=== PATIENT | female | born 1980 | race Caucasian/White ===

== ENCOUNTER 2017-10-13 11:00 | Emergency (ER) | payer MEDICAID ==
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
[2017-10-13] MEDS ORDERED: IBUP800T37 PO (11:12)
[2017-10-13] MEDS ORDERED: CLON0.5T66 PO (11:12)
[2017-10-13] MEDS ORDERED: ACETAMINOPHEN 500 MG TAB PO ONE (11:20)
[2017-10-13] MEDS ORDERED: METAXALONE 800 MG TAB PO SCH (11:20)
--- NOTE | 2017-10-13 12:09 | RADIOLOGY IMAGING REPORT ---
FACILITY: [facility] PATIENT NAME: Carolina Adamson : 1980 MR: [id number] V: [id number] EXAM DATE: ORDERING PHYSICIAN: JOSEFINA LEIGH TECHNOLOGIST: Location: [facility] Patient: Carolina Adamson : 1980 Visit/Account:[id number] Date of Sevice: 10/13/2017 Technique: KNEE 4 VIEW RIGHT HISTORY: old injury with "hardware that is bending causing pain" Comparison studies: Right knee radiographs December 31, 2016 FINDINGS: There is no acute fracture. Extensive surgical hardware overlies the tibial plateau as wel l as proximal femoral diaphysis. No interval increasing lucency. The alignment of the right knee is maintained. Previous hardware placement overlies the distal right femoral diaphysis. There are deg enerative changes within the knee. IMPRESSION: 1. Postoperative changes within the right tibia without evidence of acute hardware complication. 2. Degenerative changes of the right knee. Report Dictated By: Williams Luevano DO at 10/13/2017 12:04 PM Report E-Signed By: Williams Luevano DO at 10/13/2017 12:07 PM WSN:[email or web address]
[2017-10-13] MEDS ORDERED: META800T18 PO (12:28)
[2017-10-13 12:33] VITALS: BP 105/75
== END 2017-10-13 12:34 | disposition home or self-care (01) ==
LOC: ER 11:09
DX: M25.561 Pain in right knee (principal)
CPT/HCPCS: 73564; 99283; L1830

== ENCOUNTER 2018-05-07 15:34 | Emergency (ER) | payer MEDICAID ==
[~2018-05-07 15:34] MED LIST: CLON0.5T66 PO; IBUP800T37 PO; META800T18 PO
[2018-05-07] MEDS ORDERED: ESCI20TA38 PO (15:45)
[2018-05-07] MEDS ORDERED: HYDR50SY (15:45)
[2018-05-07] MEDS ORDERED: HYDR10TA3 PO (15:45)
[2018-05-07] MEDS ORDERED: NAPR220C12 PO (15:45)
[2018-05-07] MEDS ORDERED: ABILIF5PT PO (15:45)
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
[2018-05-07] MEDS ORDERED: ORPHENADRINE 60MG/2ML INJ IM ONE (16:10)
[2018-05-07 16:30] VITALS: BP 103/83
--- NOTE | 2018-05-07 16:44 | RADIOLOGY IMAGING REPORT ---
FACILITY: [facility] PATIENT NAME: Carolina Adamson : 1980 MR: [id number] V: [id number] EXAM DATE: ORDERING PHYSICIAN: JOSEFINA LEIGH TECHNOLOGIST: [place] [facility] [place] : 1980 Visit/Account:[id number] Date of Sevice: 05/07/2018 Technique: KNEE 4 VIEW RIGHT HISTORY: fall, pain Comparison studies: Right knee radiographs October 13, 2017 FINDINGS: There is no acute fracture. Medial, posterior and lateral hardware again is noted overlyin g tibial plateau. The right knee is maintained. Redemonstrated are degenerative findings including joint space narrowi ng, sclerosis as well as an intra-articular loose body. Small knee joint effusion is present. IMPRESSION: 1. No acute osseous process. 2. Degenerative and postoperative findings as above. Report Dictated By: Williams Luevano DO at 05/07/2018 4:36 PM Report E-Signed By: Williams Luevano DO at 05/07/2018 4:40 PM WSN:[email or web address]
== END 2018-05-07 17:05 | disposition home or self-care (01) ==
LOC: ER 15:41
DX: M25.561 Pain in right knee (principal)
CPT/HCPCS: 73564; 96372; 99283; J2360

== ENCOUNTER 2018-06-19 15:15 | Emergency (ER) | payer MEDICAID ==
[~2018-06-19 15:15] MED LIST changes: +ABILIF5PT PO; +ESCI20TA38 PO; +HYDR10TA3 PO; +HYDR50SY; +NAPR220C12 PO
--- NOTE | 2018-06-19 15:29 | ER Report ---
History and Physical Time Seen By MD: 15:24 HPI/ROS CHIEF COMPLAINT: Suicidal ideation HISTORY OF PRESENT ILLNESS: This is a 37-year-old female who presents to the emergency department for suicidal ideations. Patient states that she has been un deep increased stress her last week, his increased over the last several days, has been fighting with her living girlfriend, has had increased thoughts of suicide but no definitive plan. She has a history of cutting and depression. Patient did cut her left forearm couple of days ago, no signs of infection. Patient is making poor eye contact, not very forthcoming with information, she states that she is unsure if she wants to kill herself but she does not want to be around, she is unsure exactly what she wants or needs. She did try following up with [facility] she has been seeing [facility] for the last couple of months. She is tearful. She slipped and fell twice, injuring her left shoulder around the scapula. No obvious deformities. She also had 2 shots of liquor prior to coming in this afternoon, she also admits to using cocaine approximately 2 days ago. REVIEW OF SYSTEMS: Constitutional: No fever, no chills. Eyes: No discharge. ENT: No sore throat. Cardiovascular: No chest pain, no palpitations. Respiratory: No cough, no shortness of breath. Gastrointestinal: No abdominal pain, no vomiting. Genitourinary: No hematuria. Musculoskeletal: As above. Skin: No rashes. Neurological: No headache. Psychological: As above. Allergies: Coded Allergies: Penicillins (Verified Allergy, Unknown, 05/07/18) Home Meds Reported Medications Hydroxyzine HCl (Hydroxyzine HCl) 50 Mg/25 Ml Syrup 05/07/18 Hydroxyzine Hcl (HYDROXYZINE HCL) 10 Mg Tablet, 10 MG PO PRN 05/07/18 Escitalopram Oxalate (LEXAPRO) 20 Mg Tablet, 20 MG PO QDAY, TAB 05/07/18 Aripiprazole (ABILIFY) 5 Mg Tablet, 5 MG PO QDAY, #10 TAB 05/07/18 Naproxen Sodium (ALEVE) 220 Mg Capsule, 220 MG PO BID, CAPSULE 05/07/18 Past Medical/Surgical History The patient has a past medical and surgical history of tibial plateau fracture, occasionally uses alcohol, depression, anxiety, history of cutting, right knee surgery, sinus surgery. Reviewed Nurses Notes: Yes Hx Substance Use Disorder: No Hx Alcohol Use: Yes (OCC) Constitutional Vital Sign - Last 24 Hours 06/19/18 06/19/18 06/19/18 06/19/18 15:23 15:23 15:30 15:45 Temp 98.7 Pulse 112 100 Resp 18 36 B/P (MAP) 142/104 142/104 (117) 119/81 (94) Pulse Ox 96 93 O2 Delivery Room Air 06/19/18 06/19/18 06/19/18 06/19/18 16:15 16:45 17:15 17:45 Pulse 99 82 86 91 Resp 17 13 12 21 Pulse Ox 97 95 97 93 Physical Exam General Appearance: The patient is alert, has no immediate need for airway protection and no signs of toxicity. Eyes: Pupils equal and round no pallor or injection. ENT, Mouth: Mucous membranes are moist. Respiratory: There are no retractions, lungs are clear to auscultation. Cardiovascular: Regular rate and rhythm. Gastrointestinal: Abdomen is soft and non tender, no masses, bowel sounds normal. Neurological: Alert and oriented to 4. Moving all extremities. Following all commands. No focal neuro deficits. Skin: Warm and dry, no rashes. Musculoskeletal: Neck is supple non tender. Extremities are nontender, nonswollen and have full range of motion. Psychological: Patient making poor eye contact, not very forthcoming with inform ation. Arms are crossed. She is tearful.. Flat affect not willing to converse at this time. Patient getting very limited information however she does state that she has had suicidal ideations. DIFFERENTIAL DIAGNOSIS: After history and physical exam differential diagnosis was considered for suicidal ideation. Medical Decision Making Data Points Result Diagram: 06/19/18 1607 06/19/18 1607 Laboratory Hematology Test 06/19/18 16:04 06/19/18 16:07 Urine Color Straw Urine Clarity Clear Urine pH 5.0 pH (4.8-9.5) Urine Specific [place] 1.002 Urine Protein Negative mg/dL (NEGATIVE) Urine Glucose (UA) Negative mg/dL (NEGATIVE) Urine Ketones Negative mg/dL (NEGATIVE) Urine Blood Negative (NEGATIVE) Urine Nitrite Negative (NEGATIVE) Urine Bilirubin Negative (NEGATIVE) Urine Urobilinogen Negative mg/dL (0.2-1.9) Urine Leukocyte Esterase Negative (NEGATIVE) Urine RBC None /HPF (0-2/HPF) Urine WBC 2 /HPF (0-5/HPF) Urine Squamous Epithelial Cells Few /LPF (</=FEW) Urine Bacteria Moderate /HPF (NONE-FEW) Urine Mucus None /HPF (NONE-FEW) Urine HCG, Qualitative Negative (NEGATIVE) Urine Opiates Screen Negative Urine Barbiturates Screen Negative Ur Tricyclic Antidepressants Screen Negative Urine Phencyclidine Screen Negative Urine Amphetamines Screen Positive Urine Benzodiazepines Screen Negative Urine Cocaine Screen Negative Urine Cannabinoids Screen Negative Red Blood Count 5.12 M/uL (4.17-5.56) Mean Corpuscular Volume 92.8 fL (80.0-96.0) Mean Corpuscular Hemoglobin 30.8 pg (26.0-33.0) Mean Corpuscular Hemoglobin Concent 33.2 g/dL (32.0-36.0) Red Cell Distribution Width 13.0 % (11.5-14.5) Mean Platelet Volume 7.9 fL (7.2-11.1) Neutrophils (%) (Auto) 73.1 % (39.4-72.5) Lymphocytes (%) (Auto) 19.4 % (17.6-49.6) Monocytes (%) (Auto) 5.8 % (4.1-12.4) Eosinophils (%) (Auto) 1.2 % (0.4-6.7) Basophils (%) (Auto) 0.5 % (0.3-1.4) Nucleated RBC Relative Count (auto) 0.0 /100WBC Neutrophils # (Auto) 6.4 K/uL (2.0-7.4) Lymphocytes # (Auto) 1.7 K/uL (1.3-3.6) Monocytes # (Auto) 0.5 K/uL (0.3-1.0) Eosinophils # (Auto) 0.1 K/uL (0.0-0.5) Basophils # (Auto) 0.0 K/uL (0.0-0.1) Nucleated RBC Absolute Count (auto) 0.00 K/uL Sodium Level 142 mmol/L (137-145) Potassium Level 3.6 mmol/L (3.5-5.0) Chloride Level 111 mmol/L (98-107) Carbon Dioxide Level 25 mmol/L (22-31) Blood Urea Nitrogen 7 mg/dl (7-18) Creatinine 0.70 mg/dl (0.52-1.04) Glomerular Filtration Rate Calc > 60.0 Random Glucose 70 mg/dl (75-110) Calcium Level 9.4 mg/dl (8.4-10.2) Magnesium Level 1.9 mg/dl (1.7-2.2) Total Bilirubin 0.2 mg/dl (0.2-1.3) Aspartate Amino Transf (AST/SGOT) 31 U/L (0-35) Alanine Aminotransferase (ALT/SGPT) 25 U/L (0-56) Alkaline Phosphatase 100 U/L (0-126) Total Protein 7.2 g/dl (6.3-8.2) Albumin 4.3 g/dl (3.5-5.0) Thyroid Stimulating Hormone (TSH) 0.58 uIU/ml (0.46-4.68) Salicylates Level < 10 mg/L Salicylate Last Dose Date unk Acetaminophen Level < 10 ug/ml Serum Alcohol 84 mg/dl Chemistry Test 06/19/18 16:04 06/19/18 16:07 Urine Color Straw Urine Clarity Clear Urine pH 5.0 pH (4.8-9.5) Urine Specific [place] 1.002 Urine Protein Negative mg/dL (NEGATIVE) Urine Glucose (UA) Negative mg/dL (NEGATIVE) Urine Ketones Negative mg/dL (NEGATIVE) Urine Blood Negative (NEGATIVE) Urine Nitrite Negative (NEGATIVE) Urine Bilirubin Negative (NEGATIVE) Urine Urobilinogen Negative mg/dL (0.2-1.9) Urine Leukocyte Esterase Negative (NEGATIVE) Urine RBC None /HPF (0-2/HPF) Urine WBC 2 /HPF (0-5/HPF) Urine Squamous Epithelial Cells Few /LPF (</=FEW) Urine Bacteria Moderate /HPF (NONE-FEW) Urine Mucus None /HPF (NONE-FEW) Urine HCG, Qualitative Negative (NEGATIVE) Urine Opiates Screen Negative Urine Barbiturates Screen Negative Ur Tricyclic Antidepressants Screen Negative Urine Phencyclidine Screen Negative Urine Amphetamines Screen Positive Urine Benzodiazepines Screen Negative Urine Cocaine Screen Negative Urine Cannabinoids Screen Negative White Blood Count 8.8 k/uL (4.5-11.0) Red Blood Count 5.12 M/uL (4.17-5.56) Hemoglobin 15.7 g/dL (12.0-16.0) Hematocrit 47.5 % (34.0-47.0) Mean Corpuscular Volume 92.8 fL (80.0-96.0) Mean Corpuscular Hemoglobin 30.8 pg (26.0-33.0) Mean Corpuscular Hemoglobin Concent 33.2 g/dL (32.0-36.0) Red Cell Distribution Width 13.0 % (11.5-14.5) Platelet Count 285 K/uL (150-450) Mean Platelet Volume 7.9 fL (7.2-11.1) Neutrophils (%) (Auto) 73.1 % (39.4-72.5) Lymphocytes (%) (Auto) 19.4 % (17.6-49.6) Monocytes (%) (Auto) 5.8 % (4.1-12.4) Eosinophils (%) (Auto) 1.2 % (0.4-6.7) Basophils (%) (Auto) 0.5 % (0.3-1.4) Nucleated RBC Relative Count (auto) 0.0 /100WBC Neutrophils # (Auto) 6.4 K/uL (2.0-7.4) Lymphocytes # (Auto) 1.7 K/uL (1.3-3.6) Monocytes # (Auto) 0.5 K/uL (0.3-1.0) Eosinophils # (Auto) 0.1 K/uL (0.0-0.5) Basophils # (Auto) 0.0 K/uL (0.0-0.1) Nucleated RBC Absolute Count (auto) 0.00 K/uL Glomerular Filtration Rate Calc > 60.0 Calcium Level 9.4 mg/dl (8.4-10.2) Magnesium Level 1.9 mg/dl (1.7-2.2) Total Bilirubin 0.2 mg/dl (0.2-1.3) Aspartate Amino Transf (AST/SGOT) 31 U/L (0-35) Alanine Aminotransferase (ALT/SGPT) 25 U/L (0-56) Alkaline Phosphatase 100 U/L (0-126) Total Protein 7.2 g/dl (6.3-8.2) Albumin 4.3 g/dl (3.5-5.0) Thyroid Stimulating Hormone (TSH) 0.58 uIU/ml (0.46-4.68) Salicylates Level < 10 mg/L Salicylate Last Dose Date unk Acetaminophen Level < 10 ug/ml Serum Alcohol 84 mg/dl Toxicology Test 06/19/18 16:04 06/19/18 16:07 Urine Opiates Screen Negative Urine Barbiturates Screen Negative Ur Tricyclic Antidepressants Screen Negative Urine Phencyclidine Screen Negative Urine Amphetamines Screen Positive Urine Benzodiazepines Screen Negative Urine Cocaine Screen Negative Urine Cannabinoids Screen Negative Salicylates Level < 10 mg/L Salicylate Last Dose Date unk Acetaminophen Level < 10 ug/ml Serum Alcohol 84 mg/dl Urinalysis Test 06/19/18 16:04 Urine Color Straw Urine Clarity Clear Urine pH 5.0 pH (4.8-9.5) Urine Specific [place] 1.002 Urine Protein Negative mg/dL (NEGATIVE) Urine Glucose (UA) Negative mg/dL (NEGATIVE) Urine Ketones Negative mg/dL (NEGATIVE) Urine Blood Negative (NEGATIVE) Urine Nitrite Negative (NEGATIVE) Urine Bilirubin Negative (NEGATIVE) Urine Urobilinogen Negative mg/dL (0.2-1.9) Urine Leukocyte Esterase Negative (NEGATIVE) Urine RBC None /HPF (0-2/HPF) Urine WBC 2 /HPF (0-5/HPF) Urine Squamous Epithelial Cells Few /LPF (</=FEW) Urine Bacteria Moderate /HPF (NONE-FEW) Urine Mucus None /HPF (NONE-FEW) Urine HCG, Qualitative Negative (NEGATIVE) EKG/Imaging Imaging Location: [facility] [place] Patient: Carolina Adamson : 1980 Visit/Account:[id number] Date of Sevice: 06/19/2018 SHOULDER MIN 2 VIEWS LEFT, SCAPULA LEFT Indication: , fall, pain Comparison: Unavailable Findings: There is no acute fracture-dislocation of the left glenohumeral joint and scapula. Limited views of the left upper lung zone are unremarkable. Visualized left acromioclavicular joint is unremarkable. IMPRESSION: 1. No acute osseous abnormality left shoulder and scapula. Report Dictated By: Jimmy Blanco at 06/19/2018 4:47 PM Report E-Signed By: Jimmy Blanco at 06/19/2018 4:48 PM WSN:[facility] Location: [facility] [place] Patient: Carolina Adamson : 1980 Visit/Account:[id number] Date of Sevice: 06/19/2018 SHOULDER MIN 2 VIEWS LEFT, SCAPULA LEFT Indication: , fall, pain Comparison: Unavailable Findings: There is no acute fracture-dislocation of the left glenohumeral joint and scapu la. Limited views of the left upper lung zone are unremarkable. Visualized left acromioclavicular joint is unremarkable. IMPRESSION: 1. No acute osseous abnormality left shoulder and scapula. Report Dictated By: Jimmy Blanco at 06/19/2018 4:47 PM Report E-Signed By: Jimmy Blanco at 06/19/2018 4:48 PM [facility] Course/Re-evaluation ED Course The patient was admitted to a room. A history of physical were obtained. Differential diagnoses were considered. A CBC, CMP and psych panel were obtained. CBC unremarkable, negative UA, toxicology screen showing positive amphetamines, serum alcohol 84. As the patient was complaining of left shoulder and scapular pain I did x-ray the shoulder and scapula, both were negative for any acute findings. I reviewed this with the patient. She was given 800 mg ibuprofen, one Flexeril. The patient was evaluated by the [facility] health tech, I did review the case with Rosanna Thornton of the therapist information systems security developer, she is ac cepting the patient behavioral health unit. Patient was admitted on a voluntary status. 06/19/2018 5:02:27 pm the behavioral health tech is visiting with the patient. 06/19/2018 5:40:51 pm I did speak with Rosanna Thornton of the therapist information systems security developer, we discussed the patient's case, she has accepted the patient into the behavioral health unit. Decision to Disposition Date: Jun 19, 2018 Decision to Disposition Time: 17:40 Depart Departure Latest Vital Signs Vital Signs Date Time Temp Pulse Resp B/P (MAP) Pulse Ox O2 Delivery O2 Flow Rate FiO2 06/19/18 17:45 91 21 93 06/19/18 15:30 119/81 (94) 06/19/18 15:23 98.7 Room Air Impression: Primary Impression: Suicidal ideations Condition: Improved Disposition: XFER TO [facility] JOSEFINA LEIGH ORNAMENTER-BC Jun 19, 2018 15:29
[2018-06-19 15:30] VITALS: BP 119/81
[2018-06-19] MEDS ORDERED: IBUPROFEN 800 MG TAB PO ONE (15:55)
[2018-06-19 16:11] LABS: PLATELET COUNT, AUTOMATED 285 K/uL (150-450)
--- NOTE | 2018-06-19 16:52 | RADIOLOGY IMAGING REPORT ---
[place] [facility] [place] Carolina Adamson : 1980 MR: [id number] V: [id number] EXAM DATE: ORDERING PHYSICIAN: JOSEFINA LEIGH TECHNOLOGIST: Location: [facility] [place] Patient: Carolina Adamson : 1980 Visit/Account:[id number] Date of Sevice: 06/19/2018 SHOULDER MIN 2 VIEWS LEFT, SCAPULA LEFT Indication: , fall, pain Comparison: Unavailable Findings: There is no acute fracture-dislocation of the left glenohumeral joint and scapula. Limited views of the left upper lung zone are unremarkable. Visualized left acromioclavicular joint is unremarkable. IMPRESSION: 1. No acute osseous abnormality left shoulder and scapula. Report Dictated By: Jimmy Blanco at 06/19/2018 4:47 PM Report E-Signed By: Jimmy Blanco at 06/19/2018 4:48 PM WSN:[email or web address]-R[facility]
--- NOTE | 2018-06-19 16:53 | RADIOLOGY IMAGING REPORT ---
FACILITY: [facility] PATIENT NAME: Carolina Adamson : 1980 MR: [id number] V: [id number] EXAM DATE: ORDERING PHYSICIAN: JOSEFINA LEIGH TECHNOLOGIST: Location: [facility] [place] Patient: Carolina Adamson : 1980 Visit/Account:[id number] Date of Sevice: 06/19/2018 SHOULDER MIN 2 VIEWS LEFT, SCAPULA LEFT Indication: , fall, pain Comparison: Unavailable Findings: There is no acute fracture-dislocation of the left glenohumeral joint and scapula. Limited views of the left upper lung zone are unremarkable. Visualized left acromioclavicular joint is unremarkable. IMPRESSION: 1. No acute osseous abnormality left shoulder and scapula. Report Dictated By: Jimmy Blanco at 06/19/2018 4:47 PM Report E-Signed By: Jimmy Blanco at 06/19/2018 4:48 PM WSN:[facility]-R[facility]
[2018-06-19] MEDS ORDERED: CYCLOBENZAPRINE HCL 10 MG TAB PO ONE (17:45)
== END 2018-06-19 18:18 ==
LOC: ER 15:24
DX: R45.851 Suicidal ideations (principal); F10.10 Alcohol abuse, uncomplicated; Y90.4 Blood alcohol level of 80-99 mg/100 ml
CPT/HCPCS: 73010; 73030; 80305; 81001; 81025; 83735; 84443; 85025; 99284; G0480; 80320; 80329; 82040; 82247; 82310; 82374; 82435; 82565; 82947; 84075; 84132; 84155; 84295; 84450; 84460; 84520

== ENCOUNTER 2018-06-19 17:50 | Inpatient (IN) | payer MEDICAID ==
[~2018-06-19] VITALS: Ht 167.6 cm; Wt 59.0 kg
[2018-06-19 18:20] VITALS: BP 92/63
[2018-06-19] MEDS ORDERED: LORazepam 1 MG TAB PO PRN (19:05)
[2018-06-19] MEDS ORDERED: OLANZapine 5 MG TAB PO PRN (19:05)
[2018-06-19] MEDS ORDERED: diphenhydrAMINE 50 MG/ML VIAL IM PRN (19:05)
[2018-06-19] MEDS ORDERED: diphenhydrAMINE 25 MG CAP PO PRN (19:05)
[2018-06-19] MEDS ORDERED: OLANZapine 10 MG VIAL IM ONLY PRN (19:05)
[2018-06-19] MEDS ORDERED: MAG HYD/AL HYD/SIMETH 30ML UDC PO PRN (19:05)
[2018-06-19] MEDS ORDERED: WATER FOR INJECTION 10 ML VIAL IM ONLY PRN (19:05)
[2018-06-19] MEDS ORDERED: ACETAMINOPHEN 325 MG TAB PO PRN (19:05)
[2018-06-19] MEDS ORDERED: LORazepam 2 MG/ML VIAL IM PRN (19:05)
[2018-06-19] MEDS ORDERED: PROMETHAZINE HCL 25 MG TAB PO ONE (19:05)
[2018-06-20] MEDS: NICOTINE 21 MG/24 HR PATCH TD SCH (09:43)
[2018-06-20] MEDS: MULTIVITAMINS PO SCH (09:43)
[2018-06-20 13:30] VITALS: BP 98/58
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
[2018-06-20] MEDS ORDERED: hydrOXYzine PAMOATE 25 MG CAP PO PRN (16:45)
[2018-06-20 21:23] VITALS: BP 103/89
[2018-06-21 05:55] VITALS: BP 104/67
[2018-06-21] MEDS: MULTIVITAMINS PO SCH (09:00)
[2018-06-21] MEDS: NICOTINE 21 MG/24 HR PATCH TD SCH (09:00)
[2018-06-21] MEDS ORDERED: MULT-859 PO (09:38)
[2018-06-21] MEDS ORDERED: NICO1PAT86 TD (09:38)
--- NOTE | 2018-06-21 09:39 | BHS Progress Note ---
[facility] - Subjective Progress Notes Subjective "I just off the phone with my girlfriend and it didn't go well, she's leaving," Requesting to be discharged, wanting to obtain vehicle from her work, agrees with follow up @ [facility] Depression 07/19, anger 09/18, anxiety 11/18. Sleep sufficient, denies s/s kaley or psychosis Denies urge for self harm, suicidal ideation/homicidal ideation Suicidal Ideation: None Homicidal Ideation: None [facility] - Objective Physical Exam Vital Signs Allergies Coded Allergies Penicillins (Verified Allergy, Unknown, 05/07/18) Deferred Vital Signs Date Time Temp Pulse Resp B/P (MAP) Pulse Ox O2 Delivery O2 Flow Rate FiO2 06/21/18 05:55 98.2 104/67 (79) 95 06/20/18 21:23 110 Room Air 06/20/18 13:30 16 Muscle Strength and Tone: WNL Gait and Station: Steady [facility] Medications Reviewed: Side Effects, Benefits of Medication, Risks Allergies Reviewed: Yes Mental Status Exam General Appearance: Casual, Well Groomed, Good Eye Contact, Cooperative, Good Interaction Speech: Clear, Spontaneous, Normal Rate, Normal Rhythm, Normal Volume, Normal Tone Mood: Other (Irritable) Affect: Full and Appropriate, Neutral, Withdrawn, Agitated Thought Process: Organized, Logical, Goal Directed Thought Content: No Suicidal Ideation, No Homicidal Ideation, No Delusions, No Auditory Halllucinations, No Visual Hallucinations, No Thought Broadcasting, No Ideas of Reference, No Obsessions, No Compulsions Sensorium: Clear Cognition: Alert & Oriented-Person, Alert & Oriented-Place, Alert & Oriented- Time, Ivvdl-Bodazvst-Oqqudhogl Memory: Immediate, Recent, Remote Intelligence: Average Insight Judgment: No Intact; Fair Microbiology Medications (Trade) Dose Ordered Sig/[place] Route PRN Reason Start Time Stop Time Status Last Admin Dose Admin Acetaminophen (Tylenol(*)325 Mg Tab (Or Equiv)) 650 mg Q4H PRN PO HEADACHE 06/19/18 19:05 06/21/18 10:36 DC 06/20/18 16:55 Diphenhydramine HCl (Benadryl(*) 25 Mg Cap (Or Equiv)) 50 mg Q6H PRN PO SEVERE AGITATION 06/19/18 19:05 06/21/18 10:36 DC 06/20/18 23:15 Hydroxyzine Pamoate (Vistaril(*) 25 Mg Cap (Or Equiv)) 25 mg Q6H PRN PO ANXIETY 06/20/18 16:45 06/21/18 10:36 DC 06/20/18 16:50 Multivitamins (Thera-M Enhanced Tab (Or Equiv)) 1 each QDAY PO 06/20/18 09:00 06/21/18 10:36 DC 06/20/18 09:43 Nicotine (Nicoderm Cq(*) 21 Mg/24 Hr (Or Equiv)) 21 mg QDAY TD 06/20/18 09:00 06/21/18 10:36 DC 06/20/18 09:43 Promethazine HCl (Phenergan HCl (*) 25 Mg Tab (Or Equiv)) 25 mg ONCE ONCE PO 06/19/18 19:05 06/19/18 19:06 DC 06/19/18 19:29 Imaging Laboratory Tests Test 06/19/18 16:04 06/19/18 16:07 Range/Units Urine Color Straw Urine Clarity Clear Urine pH 5.0 4.8-9.5 pH Urine Specific [place] 1.002 Urine Protein Negative NEGATIVE mg/dL Urine Glucose (UA) Negative NEGATIVE mg/dL Urine Ketones Negative NEGATIVE mg/dL Urine Blood Negative NEGATIVE Urine Nitrite Negative NEGATIVE Urine Bilirubin Negative NEGATIVE Urine Urobilinogen Negative 0.2-1.9 mg/dL Urine Leukocyte Esterase Negative NEGATIVE Urine RBC None 0-2/HPF /HPF Urine WBC 2 0-5/HPF /HPF Urine Squamous Epithelial Cells Few </=FEW /LPF Urine Bacteria Moderate NONE-FEW /HPF Urine Mucus None NONE-FEW /HPF Urine HCG, Qualitative Negative NEGATIVE Urine Opiates Screen Negative Urine Barbiturates Screen Negative Ur Tricyclic Antidepressants Screen Negative Urine Phencyclidine Screen Negative Urine Amphetamines Screen Positive Urine Benzodiazepines Screen Negative Urine Cocaine Screen Negative Urine Cannabinoids Screen Negative White Blood Count 8.8 4.5-11.0 k/uL Red Blood Count 5.12 4.17-5.56 M/uL Hemoglobin 15.7 12.0-16.0 g/dL Hematocrit 47.5 34.0-47.0 % Mean Corpuscular Volume 92.8 80.0-96.0 fL Mean Corpuscular Hemoglobin 30.8 26.0-33.0 pg Mean Corpuscular Hemoglobin Concent 33.2 32.0-36.0 g/dL Red Cell Distribution Width 13.0 11.5-14.5 % Platelet Count 285 150-450 K/uL Mean Platelet Volume 7.9 7.2-11.1 fL Neutrophils (%) (Auto) 73.1 39.4-72.5 % Lymphocytes (%) (Auto) 19.4 17.6-49.6 % Monocytes (%) (Auto) 5.8 4.1-12.4 % Eosinophils (%) (Auto) 1.2 0.4-6.7 % Basophils (%) (Auto) 0.5 0.3-1.4 % Nucleated RBC Relative Count (auto) 0.0 /100WBC Neutrophils # (Auto) 6.4 2.0-7.4 K/uL Lymphocytes # (Auto) 1.7 1.3-3.6 K/uL Monocytes # (Auto) 0.5 0.3-1.0 K/uL Eosinophils # (Auto) 0.1 0.0-0.5 K/uL Basophils # (Auto) 0.0 0.0-0.1 K/uL Nucleated RBC Absolute Count (auto) 0.00 K/uL Sodium Level 142 137-145 mmol/L Potassium Level 3.6 3.5-5.0 mmol/L Chloride Level 111 98-107 mmol/L Carbon Dioxide Level 25 22-31 mmol/L Blood Urea Nitrogen 7 7-18 mg/dl Creatinine 0.70 0.52-1.04 mg/dl Glomerular Filtration Rate Calc > 60.0 Random Glucose 70 75-110 mg/dl Calcium Level 9.4 8.4-10.2 mg/dl Magnesium Level 1.9 1.7-2.2 mg/dl Total Bilirubin 0.2 0.2-1.3 mg/dl Aspartate Amino Transf (AST/SGOT) 31 0-35 U/L Alanine Aminotransferase (ALT/SGPT) 25 0-56 U/L Alkaline Phosphatase 100 0-126 U/L Total Protein 7.2 6.3-8.2 g/dl Albumin 4.3 3.5-5.0 g/dl Thyroid Stimulating Hormone (TSH) 0.58 0.46-4.68 uIU/ml Salicylates Level < 10 mg/L Salicylate Last Dose Date unk Acetaminophen Level < 10 ug/ml Serum Alcohol 84 mg/dl [facility] Assessment and Plan [id number] Encounter Date: Jun 21, 2018 [id number] Encounter Time: 10:43 Problems: (1) Adjustment disorder with disturbance of emotion Status: Acute (2) Stimulant use disorder Status: Chronic (3) Borderline personality disorder Status: Chronic (4) Post traumatic stress disorder Status: Chronic Condition Discharge to home Encourage follow up with [facility] for medication management, individual therapy Abstain from etoh/illicit substances Crisis line # provided, encourage use Return to ER for worsening s/s, SI/HI. ABIMAEL LAZCANO NP Jun 21, 2018 09:39
--- NOTE | 2018-06-22 04:44 | ROMSA DISCHARGE ---
DATE OF ADMISSION: June 19, 2018 DATE OF DISCHARGE: June 21, 2018 ATTENDING PROVIDER Rosanna Thornton, Psychiatric/Mental Health Nurse Practitioner FINAL DIAGNOSES PER DSM-V 1. Adjustment disorder with mixed anxiety and depressed mood. 2. Stimulant use disorder, methamphetamine, cocaine, moderate to severe. 3. Intravenous drug use history. 4. Post-traumatic stress disorder, per history. 5. Borderline personality disorder. REASON FOR ADMISSION/BRIEF HISTORY This is a 37-year-old female who presented to the emergency department reporting suicidal ideation. She has had multiple stressors within the last several weeks, including fighting with her significant other, obtaining new employment within the last month, and financial stressors. She had reported increased depression with thoughts of harming herself. She has a history of self-harm behavior in the form of cutting. She reported she cut her left forearm a few days prior to admission. She had been seen at [facility] for mental health care after moving to [place] approximately four to five months ago, as had been discharged from [facility] and put on medications including Lexapro, Abilify, and Suboxone, although reports after taking these a month and she ran out, she did not follow up with the psychiatric medication provider. She attempted to obtain appointment at [facility] this week for meeting with therapist about her stressors, although was not able to obtain an appointment. She admits to using cocaine approximately two days prior to admission. History of cocaine and methamphetamine abuse. She is positive for amphetamines and negative for cocaine on her toxicology screen. She reports a history of multiple inpatient psychiatric admissions, multiple suicide attempts as outlined in her history and physical, and has been tried on multiple psychotropics. She apparently was on medications up until about two months ago, when her prescriptions ran out. At the time of discharge interview, she is requesting to be discharged. She is concerned about retrieving her vehicle from her employment. She is concerned about possible loss of employment. She is denying urges for self-harm. She is denying suicidal or homicidal ideation. She was reporting decreased anxiety, anger and depression since her admission, and is agreeable with ongoing outpatient mental health care through [facility]. PHYSICAL EXAMINATION Please see emergency room notes for physical exam. Vital signs at time of admission including temperature 97.5, pulse 80, respiratory rate 16, blood pressure 92/63. Vital signs at time of discharge include temperature 97.1, pulse 110, respiratory rate 16, blood pressure 103/89, pulse oximetry 95% on room air. LABORATORY DATA CBC within normal limits. Hematocrit slightly elevated at 47.5. Chemistry panel with chloride slightly elevated at 110, random glucose low. Urine screen with moderate amount of bacteria. She is denying current symptoms of urinary tract infection. Toxicology includes salicylate and acetaminophen levels less than 10. Serum alcohol upon admission is 84. Urine screen negative for opiates, barbiturates, tricyclics, phencyclidine, benzodiazepines, cocaine, and cannabinoids; positive for amphetamines, which she admits to using. MENTAL STATUS EXAMINATION GENERAL APPEARANCE, BEHAVIOR AND ATTITUDE: Patient is calm, cooperative at time of discharge interview. She is irritable, requesting to be discharged. SPEECH: Regular rate, rhythm, volume and tone. MOOD: Dysthymic, irritable. AFFECT: Constricted, mood-congruent. THOUGHT PROCESSES: Logical and goal-directed; no loose associations or flight of ideas. THOUGHT CONTENT: Free of auditory or visual hallucinations, ideas of reference, thought broadcasting, delusions, obsessions or compulsions. The patient is adamantly denying suicidal or homicidal ideation, agreeable with ongoing outpatient mental health care followup at [facility]. CONSULTATIONS None. TREATMENT Patient participated in individual and group therapy. She was resistant toward beginning medications, as states that she is unable to afford them. This provider contacts [facility] to determine which medications would be most cost effective for her, although at time of discharge she is denying medication management and will follow up with [facility] for outpatient medication management and individual therapy. Discharge medications including multivitamin, one p.o. daily; nicotine transdermal patch, one transdermal patch daily for nicotine replacement. Her Abilify, Lexapro, hydroxyzine, and Aleve were discontinued, as she reports she has not been taking these at home. CONDITION OF PATIENT ON DISCHARGE She is stable. Considered a minimal risk to herself or others. DISPOSITION Patient is discharged to home. She is encouraged to follow up with [facility] for individual therapy and medication management. The crisis line number is provided. She is encouraged use for worsening symptoms, suicidal or homicidal ideation. She is to abstain from alcohol and all illicit substances. She is to return to the emergency room for worsening symptoms, suicidal or homicidal ideation. Patient is competent and agreeable with the above discharge plan and verbalizes understanding of reviewed discharge instructions as stated above. PATITO
== END 2018-06-21 10:20 | disposition home or self-care (01) | DRG 882 ==
LOC: BHS 17:50
PROVIDERS: ADMIT Nurse Practitioner Psychiatric/Mental Health; ATTEND Nurse Practitioner Psychiatric/Mental Health
DX: F43.23 Adjustment disorder with mixed anxiety and depressed mood (principal); F15.20 Other stimulant dependence, uncomplicated; F11.20 Opioid dependence, uncomplicated; R45.851 Suicidal ideations; F43.12 Post-traumatic stress disorder, chronic; F60.3 Borderline personality disorder; Y90.4 Blood alcohol level of 80-99 mg/100 ml; S51.812A Laceration without foreign body of left forearm, initial encounter; W26.9XXA Contact with unspecified sharp object(s), initial encounter; Z91.5 Personal history of self-harm; Z81.8 Family history of other mental and behavioral disorders; Z88.0 Allergy status to penicillin; Z62.810 Personal history of physical and sexual abuse in childhood; Z62.811 Personal history of psychological abuse in childhood; Z59.9 Problem related to housing and economic circumstances, unspecified
CPT/HCPCS: Q0163; Q0169; Q0177

== ENCOUNTER 2018-07-30 16:28 | Emergency (ER) | payer MEDICAID ==
[~2018-07-30 16:28] MED LIST changes: +MULT-859 PO; +NICO1PAT86 TD
[2018-07-30 16:34] VITALS: BP 108/82
[2018-07-30] MEDS ORDERED: LORazepam 2 MG/ML VIAL IVP ONE (16:40)
[2018-07-30 16:55] LABS: PLATELET COUNT, AUTOMATED 274 K/uL (150-450)
--- NOTE | 2018-07-30 17:05 | ER Report ---
History and Physical Time Seen By MD: 17:04 Hx. of Stated Complaint: DIFF. BREATHING, CHEST PAIN HPI/ROS CHIEF COMPLAINT: chest pain/anxiety HISTORY OF PRESENT ILLNESS: Pt started with chest pain last night. pain is const ant and tight. Feels difficult to get oxygen into her lungs. Pt has asthma and has been using her inhaler frequently. + cough, + runny nose. Pt not sure if she has had any fevers. PT very anxious and hyperventilating. Pt states she has anxiety and did not fill her hydroxazine which she takes for break thru episodes. Pt admits to feeling very anxious. Pt denies any pain in legs. PT does state her fingers feel tight. REVIEW OF SYSTEMS: Constitutional: No fever, no chills. Eyes: No discharge. ENT: No sore throat, + runny nose Cardiovascular: + chest pain, no palpitations. Respiratory: No cough, + shortness of breath. Gastrointestinal: No abdominal pain, no vomiting. Genitourinary: No hematuria. Musculoskeletal: No back pain. Skin: No rashes. Neurological: No headache. Allergies: Coded Allergies: Penicillins (Verified Allergy, Unknown, 05/07/18) Home Meds Reported Medications [Trintellix] No Conflict Check 07/30/18 Discontinued Reported Medications Nicotine (NICOTINE PATCH) 1 Each Patch.td24, 1 EACH TD DAILY 06/21/18 Multivits,Ca,Minerals/Iron/Fa (THERA-M TABLET) 1 Each Tablet, 1 EACH PO DAILY 06/21/18 Past Medical/Surgical History Pmhx: anxiety, tibial plateau fx Pshx: r knee surgery, sinus surgery Reviewed Nurses Notes: Yes Old Medical Records Reviewed: Yes Hx Smoking: Yes Smoking Status: Current: Every Day Smoker Exposure to Second Hand Smoke?: Yes Hx Substance Use Disorder: Yes Hx Alcohol Use: Yes Constitutional Vital Sign - Last 24 Hours 07/30/18 07/30/18 07/30/18 07/30/18 16:34 17:46 17:46 17:53 Temp 98.2 Pulse 94 72 82 Resp 22 16 16 B/P (MAP) 108/82 Pulse Ox 95 93 O2 Delivery Blow-by Room Air Physical Exam General Appearance: The patient is alert, has no immediate need for airway protection and no signs of toxicity, pt appears very anxious Eyes: Pupils equal and round no pallor or injection, EOMI ENT: no pharyngeal erythema or exudates, Mucous membranes are moist, TM are nl b/l Respiratory: There are no retractions, lungs are clear to auscultation. Cardiovascular: Regular rate and rhythm. pulses are equal and symmetrical Gastrointestinal: Abdomen is soft and non tender, no masses, bowel sounds no rmal, no guarding, no rigidity or rebound Neurological: Cranial nerves II-XII grossly intact, no sensory or motor loss Skin: Warm and dry, no rashes. Musculoskeletal: Neck is supple non tender, no vertebral tenderness Extremities are nontender, nonswollen and have full range of motion. DIFFERENTIAL DIAGNOSIS: After history and physical exam differential diagnosis was considered for panic attack, asthma attack, influenza, acs Medical Decision Making Data Points Result Diagram: 07/30/18 1637 07/30/18 1637 Laboratory Hematology Test 07/30/18 16:37 07/30/18 16:44 Red Blood Count 4.21 M/uL (4.17-5.56) Mean Corpuscular Volume 92.2 fL (80.0-96.0) Mean Corpuscular Hemoglobin 31.0 pg (26.0-33.0) Mean Corpuscular Hemoglobin Concent 33.7 g/dL (32.0-36.0) Red Cell Distribution Width 13.4 % (11.5-14.5) Mean Platelet Volume 8.1 fL (7.2-11.1) Neutrophils (%) (Auto) 61.2 % (39.4-72.5) Lymphocytes (%) (Auto) 25.1 % (17.6-49.6) Monocytes (%) (Auto) 9.8 % (4.1-12.4) Eosinophils (%) (Auto) 3.4 % (0.4-6.7) Basophils (%) (Auto) 0.5 % (0.3-1.4) Nucleated RBC Relative Count (auto) 0.0 /100WBC Neutrophils # (Auto) 4.8 K/uL (2.0-7.4) Lymphocytes # (Auto) 2.0 K/uL (1.3-3.6) Monocytes # (Auto) 0.8 K/uL (0.3-1.0) Eosinophils # (Auto) 0.3 K/uL (0.0-0.5) Basophils # (Auto) 0.0 K/uL (0.0-0.1) Nucleated RBC Absolute Count (auto) 0.00 K/uL Sodium Level 136 mmol/L (137-145) Potassium Level 4.1 mmol/L (3.5-5.0) Chloride Level 111 mmol/L (98-107) Carbon Dioxide Level 17 mmol/L (22-31) Blood Urea Nitrogen 16 mg/dl (7-18) Creatinine 0.60 mg/dl (0.52-1.04) Glomerular Filtration Rate Calc > 60.0 Random Glucose 116 mg/dl (75-110) Calcium Level 8.7 mg/dl (8.4-10.2) Total Bilirubin 0.1 mg/dl (0.2-1.3) Aspartate Amino Transf (AST/SGOT) 18 U/L (0-35) Alanine Aminotransferase (ALT/SGPT) 19 U/L (0-56) Alkaline Phosphatase 86 U/L (0-126) Troponin I < 0.012 ng/ml Total Protein 6.3 g/dl (6.3-8.2) Albumin 3.9 g/dl (3.5-5.0) Influenza Virus Type A (PCR) Negative (NEGATIVE) Influenza Virus Type B (PCR) Negative (NEGATIVE) Chemistry Test 07/30/18 16:37 07/30/18 16:44 White Blood Count 7.9 k/uL (4.5-11.0) Red Blood Count 4.21 M/uL (4.17-5.56) Hemoglobin 13.1 g/dL (12.0-16.0) Hematocrit 38.8 % (34.0-47.0) Mean Corpuscular Volume 92.2 fL (80.0-96.0) Mean Corpuscular Hemoglobin 31.0 pg (26.0-33.0) Mean Corpuscular Hemoglobin Concent 33.7 g/dL (32.0-36.0) Red Cell Distribution Width 13.4 % (11.5-14.5) Platelet Count 274 K/uL (150-450) Mean Platelet Volume 8.1 fL (7.2-11.1) Neutrophils (%) (Auto) 61.2 % (39.4-72.5) Lymphocytes (%) (Auto) 25.1 % (17.6-49.6) Monocytes (%) (Auto) 9.8 % (4.1-12.4) Eosinophils (%) (Auto) 3.4 % (0.4-6.7) Basophils (%) (Auto) 0.5 % (0.3-1.4) Nucleated RBC Relative Count (auto) 0.0 /100WBC Neutrophils # (Auto) 4.8 K/uL (2.0-7.4) Lymphocytes # (Auto) 2.0 K/uL (1.3-3.6) Monocytes # (Auto) 0.8 K/uL (0.3-1.0) Eosinophils # (Auto) 0.3 K/uL (0.0-0.5) Basophils # (Auto) 0.0 K/uL (0.0-0.1) Nucleated RBC Absolute Count (auto) 0.00 K/uL Glomerular Filtration Rate Calc > 60.0 Calcium Level 8.7 mg/dl (8.4-10.2) Total Bilirubin 0.1 mg/dl (0.2-1.3) Aspartate Amino Transf (AST/SGOT) 18 U/L (0-35) Alanine Aminotransferase (ALT/SGPT) 19 U/L (0-56) Alkaline Phosphatase 86 U/L (0-126) Troponin I < 0.012 ng/ml Total Protein 6.3 g/dl (6.3-8.2) Albumin 3.9 g/dl (3.5-5.0) Influenza Virus Type A (PCR) Negative (NEGATIVE) Influenza Virus Type B (PCR) Negative (NEGATIVE) EKG/Imaging EKG Interpretation nsr @ [address] wave changes but nothing acute ED Course/Re-evaluation Clinical Indication for ER IV: IV Access ED Course Pt hyperventilating and very anxious. Talking fast. will give a dose of ativan IV and check labs, ekg and imaging 07/30/2018 5:19:44 pm Pt appears more calm but still states she feels anxious. will give her hydroxyzine. PT did let the nurse know that she had used meth earlier this week. PT does have hx of cocaine and meth abuse. pt denies cocaine. Pts CO2 is slightly low however pt hyperventilating. 07/30/2018 5:58:44 pm Pt feels better after the neb treatment. Discussed a short course of steriods to help with inhaler. PT is agreeable. Decision to Disposition Date: Jul 30, 2018 Decision to Disposition Time: 17:59 Depart Departure Latest Vital Signs Vital Signs Date Time Temp Pulse Resp B/P (MAP) Pulse Ox O2 Delivery O2 Flow Rate FiO2 07/30/18 17:53 82 16 07/30/18 17:46 93 Room Air 07/30/18 16:34 98.2 108/82 Impression: Primary Impression: Hyperventilating Additional Impressions: Anxiety attack Reactive airway disease with acute exacerbation Condition: Improved Disposition: HOME OR SELF-CARE Referrals: [facility] New Scripts Hydroxyzine Hcl (HYDROXYZINE HCL) 25 Mg Tablet 1-2 TAB PO Q6-8H PRN for ANXIETY, #21 TAB Prov: DAWN HERNANDEZ DO 07/30/18 Prednisone (PREDNISONE) 20 Mg Tablet 20 MG PO BID, #8 TAB Prov: DAWN HERNANDEZ DO 07/30/18 Patient Instructions: Anxiety (ED), Asthma (ED), Cold Symptoms (ED) Additional Instructions: We gave you your prednisone for today. [facility]. This is for you to start tomorrow morning. Prednisone twice a day. hydroxyzine will help with your anxiety but will also help dry your runny nose. Follow up with your family doctor. Problem Qualifiers Additional Impressions: Reactive airway disease with acute exacerbation Asthma severity: mild Asthma persistence: intermittent Qualified Codes: J45.21 - Mild intermittent asthma with (acute) exacerbation DAWN HERNANDEZ DO Jul 30, 2018 17:05
--- NOTE | 2018-07-30 17:07 | EKG ---
FACILITY: [facility] [place] PATIENT NAME: KAREN SAENZ : [id number] MR: [id number] V: [id number] EXAM DATE: ORDERING PHYSICIAN: DAWN HERNANDEZ TECHNOLOGIST: Test Reason : chest pain Blood Pressure : / mmHG Vent. Rate : 086 BPM Atrial Rate : 086 BPM P-R Int : 144 ms QRS Dur : 078 ms QT Int : 396 ms P-R-T Axes : 053 082 054 degrees QTc Int : 473 ms Normal sinus rhythm Normal ECG No previous ECGs available Confirmed by JOSEPH ROSE ([id number]) on 07/31/2018 6:38:24 AM Referred By: Confirmed By:JOSEPH ROSE
[2018-07-30] MEDS ORDERED: Trintellix (17:15)
--- NOTE | 2018-07-30 17:17 | RADIOLOGY IMAGING REPORT ---
FACILITY: [facility] PATIENT NAME: Carolina Adamson : 1980 MR: [id number] V: [id number] EXAM DATE: ORDERING PHYSICIAN: DAWN HERNANDEZ TECHNOLOGIST: Location: [facility] [place] Patient: Carolina Adamson : 1980 Visit/Account:[id number] Date of Sevice: 07/30/2018 CHEST PA LAT COMPARISONS: None. ADDITIONAL PERTINENT HISTORY: Cough with history of pulmonary nodules FINDINGS: Cardiomediastinal silhouette: Negative. Pulmonary vasculature: Negative. Lung montgomery: Negative. Pleural spaces: Negative. Osseous structures: Negative. Surrounding soft tissues: Negative. IMPRESSION: Normal views of the chest. Report Dictated By: Ace John MD at 07/30/2018 5:10 PM Report E-Signed By: Ace John MD at 07/30/2018 5:13 PM WSN:[id number]
[2018-07-30] MEDS ORDERED: hydrOXYzine 25 MG TAB PO ONE (17:20)
[2018-07-30] MEDS ORDERED: ALBUTEROL/IPRATROPIUM 3 ML NEB NEB ONE (17:40)
[2018-07-30] MEDS ORDERED: predniSONE 20 MG TAB PO ONE (18:00)
[2018-07-30] MEDS ORDERED: PRED20TA6 PO (18:01)
[2018-07-30] MEDS ORDERED: HYDR-4225 PO (18:05)
== END 2018-07-30 18:25 | disposition home or self-care (01) ==
LOC: ER 16:33
DX: R06.4 Hyperventilation (principal); F41.9 Anxiety disorder, unspecified; J45.21 Mild intermittent asthma with (acute) exacerbation
CPT/HCPCS: 84484; 85025; 87502; 93005; 94640; 96374; 99284; J2060; J7512; J7620; 71046; 82040; 82247; 82310; 82374; 82435; 82565; 82947; 84075; 84132; 84155; 84295; 84450; 84460; 84520

== ENCOUNTER 2018-08-28 07:55 | Emergency (ER) | payer MEDICAID ==
[~2018-08-28 07:55] MED LIST changes: +HYDR-4225 PO; +PRED20TA6 PO; +Trintellix
[2018-08-28] MEDS ORDERED: ONDANSETRON 4 MG ODT TABDP SL ONE (08:15)
--- NOTE | 2018-08-28 08:16 | ER Report ---
History and Physical Time Seen By MD: 08:05 Hx. of Stated Complaint: PATIENT REPORTS INABILITY TO HANDLE HER LIFE. SHE REPORTS RECENT METH USE. SHE REPORTS THAT SHE IS CURRENTLY ON PROBATION HPI/ROS CHIEF COMPLAINT: Anxiety depression suicidal ideation HISTORY OF PRESENT ILLNESS: 38 [place] comes emergency Department with a complaint of inability to function feeling overwhelmed anxiety or phobia persecution suicidal ideation and substance abuse. Patient has had a long history of psychiatric illnesses is been trying to navigate. I being unsuccessful. 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 Patient currently is suicidal. Patient states that she is also uses amphetamines on a regular basis and is currently on parole. Patient has no physical complaints at this time and wants admission for suicidal ideation depression and anxiety REVIEW OF SYSTEMS: Respiratory: No cough, no dyspnea. Cardiovascular: No chest pain, no palpitations. Gastrointestinal: No vomiting, no abdominal pain. Musculoskeletal: No back pain. Remainder of the 14 system rev: Yes Allergies: Coded Allergies: Penicillins (Verified Allergy, Unknown, 05/07/18) Home Meds Active Scripts Hydroxyzine Hcl (HYDROXYZINE HCL) 25 Mg Tablet, 1-2 TAB PO Q6-8H PRN for ANXIETY, #21 TAB Prov:DAWN HERNANDEZ V DO 07/30/18 Prednisone (PREDNISONE) 20 Mg Tablet, 20 MG PO BID, #8 TAB Prov:LAURORA,DAWN V DO 07/30/18 Reported Medications [Trintellix] No Conflict Check 07/30/18 Reviewed Nurses Notes: Yes Old Medical Records Reviewed: Yes Hx Smoking: Yes Smoking Status: Current: Every Day Smoker Exposure to Second Hand Smoke?: Yes Hx Substance Use Disorder: Yes Hx Alcohol Use: Yes Constitutional Vital Sign - Last 24 Hours 08/28/18 08:04 Temp 99.4 Pulse 81 Resp 24 B/P (MAP) 92/72 Pulse Ox 94 O2 Delivery Room Air Physical Exam General Appearance: [The patient is alert, has no immediate need for airway protection and no current signs of toxicity.] [ ] Eyes: Pupils equal and round no injection. Respiratory: Chest is non tender, lungs are clear to auscultation. Cardiac: regular rate and rhythm [ ] Gastrointestinal: Abdomen is soft and non tender, no masses, bowel sounds normal. Musculoskeletal: Neck: Neck is supple and non tender. Extremities have full range of motion and are non tender. Skin: No rashes or lesions. Behavioral examination patient was suicidal ideation thoughts and plan patient is emotional and emotionally labile and crying at the time of presentation plus of persecution [place] phobia DIFFERENTIAL DIAGNOSIS: After history and physical exam differential diagnosis was considered for suicidal ideation with intent and plan depression and anxiety control bipolar Medical Decision Making Data Points Result Diagram: 08/28/18 0818 08/28/18 0818 Laboratory Hematology Test 08/28/18 07:57 08/28/18 08:18 Urine Color Yellow Urine Clarity Slightly-cloudy Urine pH 5.0 pH (4.8-9.5) Urine Specific [place] 1.023 Urine Protein Negative mg/dL (NEGATIVE) Urine Glucose (UA) Negative mg/dL (NEGATIVE) Urine Ketones Negative mg/dL (NEGATIVE) Urine Blood Negative (NEGATIVE) Urine Nitrite Negative (NEGATIVE) Urine Bilirubin Negative (NEGATIVE) Urine Urobilinogen Negative mg/dL (0.2-1.9) Urine Leukocyte Esterase Negative (NEGATIVE) Urine RBC 1 /HPF (0-2/HPF) Urine WBC None /HPF (0-5/HPF) Urine Squamous Epithelial Cells Many /LPF (</=FEW) Urine Amorphous Crystals Few /HPF Urine Bacteria Few /HPF (NONE-FEW) Urine Mucus Few /HPF (NONE-FEW) Urine HCG, Qualitative Negative (NEGATIVE) Urine Opiates Screen Negative Urine Barbiturates Screen Negative Ur Tricyclic Antidepressants Screen Negative Urine Phencyclidine Screen Negative Urine Amphetamines Screen Negative Urine Benzodiazepines Screen Negative Urine Cocaine Screen Negative Urine Cannabinoids Screen Negative Red Blood Count 4.61 M/uL (4.17-5.56) Mean Corpuscular Volume 92.6 fL (80.0-96.0) Mean Corpuscular Hemoglobin 31.3 pg (26.0-33.0) Mean Corpuscular Hemoglobin Concent 33.8 g/dL (32.0-36.0) Red Cell Distribution Width 13.7 % (11.5-14.5) Mean Platelet Volume 8.0 fL (7.2-11.1) Neutrophils (%) (Auto) 81.0 % (39.4-72.5) Lymphocytes (%) (Auto) 13.1 % (17.6-49.6) Monocytes (%) (Auto) 4.0 % (4.1-12.4) Eosinophils (%) (Auto) 1.7 % (0.4-6.7) Basophils (%) (Auto) 0.2 % (0.3-1.4) Nucleated RBC Relative Count (auto) 0.0 /100WBC Neutrophils # (Auto) 9.8 K/uL (2.0-7.4) Lymphocytes # (Auto) 1.6 K/uL (1.3-3.6) Monocytes # (Auto) 0.5 K/uL (0.3-1.0) Eosinophils # (Auto) 0.2 K/uL (0.0-0.5) Basophils # (Auto) 0.0 K/uL (0.0-0.1) Nucleated RBC Absolute Count (auto) 0.00 K/uL Sodium Level 137 mmol/L (137-145) Potassium Level 3.7 mmol/L (3.5-5.0) Chloride Level 109 mmol/L (98-107) Carbon Dioxide Level 20 mmol/L (22-31) Blood Urea Nitrogen 13 mg/dl (7-18) Creatinine 0.70 mg/dl (0.52-1.04) Glomerular Filtration Rate Calc > 60.0 Random Glucose 104 mg/dl (75-110) Calcium Level 9.4 mg/dl (8.4-10.2) Magnesium Level 1.7 mg/dl (1.7-2.2) Total Bilirubin 0.7 mg/dl (0.2-1.3) Aspartate Amino Transf (AST/SGOT) 19 U/L (0-35) Alanine Aminotransferase (ALT/SGPT) 15 U/L (0-56) Alkaline Phosphatase 76 U/L (0-126) Total Protein 6.9 g/dl (6.3-8.2) Albumin 4.2 g/dl (3.5-5.0) Salicylates Level < 10 mg/L Salicylate Last Dose Date unk Acetaminophen Level < 10 ug/ml Serum Alcohol < 10 mg/dl Chemistry Test 08/28/18 07:57 08/28/18 08:18 Urine Color Yellow Urine Clarity Slightly-cloudy Urine pH 5.0 pH (4.8-9.5) Urine Specific [place] 1.023 Urine Protein Negative mg/dL (NEGATIVE) Urine Glucose (UA) Negative mg/dL (NEGATIVE) Urine Ketones Negative mg/dL (NEGATIVE) Urine Blood Negative (NEGATIVE) Urine Nitrite Negative (NEGATIVE) Urine Bilirubin Negative (NEGATIVE) Urine Urobilinogen Negative mg/dL (0.2-1.9) Urine Leukocyte Esterase Negative (NEGATIVE) Urine RBC 1 /HPF (0-2/HPF) Urine WBC None /HPF (0-5/HPF) Urine Squamous Epithelial Cells Many /LPF (</=FEW) Urine Amorphous Crystals Few /HPF Urine Bacteria Few /HPF (NONE-FEW) Urine Mucus Few /HPF (NONE-FEW) Urine HCG, Qualitative Negative (NEGATIVE) Urine Opiates Screen Negative Urine Barbiturates Screen Negative Ur Tricyclic Antidepressants Screen Negative Urine Phencyclidine Screen Negative Urine Amphetamines Screen Negative Urine Benzodiazepines Screen Negative Urine Cocaine Screen Negative Urine Cannabinoids Screen Negative White Blood Count 12.0 k/uL (4.5-11.0) Red Blood Count 4.61 M/uL (4.17-5.56) Hemoglobin 14.4 g/dL (12.0-16.0) Hematocrit 42.7 % (34.0-47.0) Mean Corpuscular Volume 92.6 fL (80.0-96.0) Mean Corpuscular Hemoglobin 31.3 pg (26.0-33.0) Mean Corpuscular Hemoglobin Concent 33.8 g/dL (32.0-36.0) Red Cell Distribution Width 13.7 % (11.5-14.5) Platelet Count 276 K/uL (150-450) Mean Platelet Volume 8.0 fL (7.2-11.1) Neutrophils (%) (Auto) 81.0 % (39.4-72.5) Lymphocytes (%) (Auto) 13.1 % (17.6-49.6) Monocytes (%) (Auto) 4.0 % (4.1-12.4) Eosinophils (%) (Auto) 1.7 % (0.4-6.7) Basophils (%) (Auto) 0.2 % (0.3-1.4) Nucleated RBC Relative Count (auto) 0.0 /100WBC Neutrophils # (Auto) 9.8 K/uL (2.0-7.4) Lymphocytes # (Auto) 1.6 K/uL (1.3-3.6) Monocytes # (Auto) 0.5 K/uL (0.3-1.0) Eosinophils # (Auto) 0.2 K/uL (0.0-0.5) Basophils # (Auto) 0.0 K/uL (0.0-0.1) Nucleated RBC Absolute Count (auto) 0.00 K/uL Glomerular Filtration Rate Calc > 60.0 Calcium Level 9.4 mg/dl (8.4-10.2) Magnesium Level 1.7 mg/dl (1.7-2.2) Total Bilirubin 0.7 mg/dl (0.2-1.3) Aspartate Amino Transf (AST/SGOT) 19 U/L (0-35) Alanine Aminotransferase (ALT/SGPT) 15 U/L (0-56) Alkaline Phosphatase 76 U/L (0-126) Total Protein 6.9 g/dl (6.3-8.2) Albumin 4.2 g/dl (3.5-5.0) Salicylates Level < 10 mg/L Salicylate Last Dose Date unk Acetaminophen Level < 10 ug/ml Serum Alcohol < 10 mg/dl Toxicology Test 08/28/18 07:57 08/28/18 08:18 Urine Opiates Screen Negative Urine Barbiturates Screen Negative Ur Tricyclic Antidepressants Screen Negative Urine Phencyclidine Screen Negative Urine Amphetamines Screen Negative Urine Benzodiazepines Screen Negative Urine Cocaine Screen Negative Urine Cannabinoids Screen Negative Salicylates Level < 10 mg/L Salicylate Last Dose Date unk Acetaminophen Level < 10 ug/ml Serum Alcohol < 10 mg/dl Urinalysis Test 08/28/18 07:57 Urine Color Yellow Urine Clarity Slightly-cloudy Urine pH 5.0 pH (4.8-9.5) Urine Specific [place] 1.023 Urine Protein Negative mg/dL (NEGATIVE) Urine Glucose (UA) Negative mg/dL (NEGATIVE) Urine Ketones Negative mg/dL (NEGATIVE) Urine Blood Negative (NEGATIVE) Urine Nitrite Negative (NEGATIVE) Urine Bilirubin Negative (NEGATIVE) Urine Urobilinogen Negative mg/dL (0.2-1.9) Urine Leukocyte Esterase Negative (NEGATIVE) Urine RBC 1 /HPF (0-2/HPF) Urine WBC None /HPF (0-5/HPF) Urine Squamous Epithelial Cells Many /LPF (</=FEW) Urine Amorphous Crystals Few /HPF Urine Bacteria Few /HPF (NONE-FEW) Urine Mucus Few /HPF (NONE-FEW) Urine HCG, Qualitative Negative (NEGATIVE) ED Course/Re-evaluation ED Course ED course 38-year-old female here with depression anxiety failure to cope suicidal ideation with plan and 10 prior attempts seen and evaluated in the emergency department medically cleared patient also seen by behavioral health determined admission as a voluntary patient agreed signed herself and is a voluntary admission spoke to both patient and his significant other agreeable to the plan patient be admitted diagnosis suicidal ideation Decision to Disposition Date: Aug 28, 2018 Decision to Disposition Time: 08:47 Depart Departure Latest Vital Signs Vital Signs Date Time Temp Pulse Resp B/P (MAP) Pulse Ox O2 Delivery O2 Flow Rate FiO2 08/28/18 08:04 99.4 81 24 92/72 94 Room Air Impression: Primary Impression: Suicidal ideations Condition: Improved Disposition: XFER TO [facility] JUNE MD Aug 28, 2018 08:16
[2018-08-28 08:28] LABS: PLATELET COUNT, AUTOMATED 276 K/uL (150-450)
[2018-08-28] MEDS ORDERED: LORazepam 0.5 MG TAB PO ONE (08:30)
[2018-08-28 09:20] VITALS: BP 108/73
== END 2018-08-28 09:22 ==
LOC: ER 08:05
DX: R45.851 Suicidal ideations (principal)
CPT/HCPCS: 80305; 81001; 81025; 83735; 84443; 85025; 99284; G0480; S0119; 80320; 80329; 82040; 82247; 82310; 82374; 82435; 82565; 82947; 84075; 84132; 84155; 84295; 84450; 84460; 84520

== ENCOUNTER 2018-08-28 09:18 | Inpatient (IN) | payer MEDICAID ==
[~2018-08-28] VITALS: Ht 167.6 cm; Wt 59.9 kg
[2018-08-28 09:30] VITALS: BP 122/64
[2018-08-28] MEDS ORDERED: ACETAMINOPHEN 325 MG TAB PO PRN (09:35)
[2018-08-28] MEDS ORDERED: QUEtiapine FUM 25 MG TAB PO PRN (12:30)
[2018-08-28] MEDS ORDERED: CALAMINE LOTION 120 ML BTL TP PRN (14:00)
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
[2018-08-29] MEDS: MULTIVITAMINS PO SCH (08:50)
[2018-08-29] MEDS: QUEtiapine FUM 25 MG TAB PO PRN ×2 (09:12→18:13)
[2018-08-29 09:19] VITALS: BP 97/72
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
[2018-08-29] MEDS ORDERED: NICOTINE INH SYSTEM 10 MG/INH INH PRN (17:00)
[2018-08-29] MEDS ORDERED: NICOTINE CARTRIDGE 1 EA PO PRN (17:00)
[2018-08-29] MEDS: MAG HYD/AL HYD/SIMETH 30ML UDC PO PRN (18:11)
--- NOTE | 2018-08-29 20:00 | NUR ---
REPORT FROM LIAM/MARKELL. WILL ASSUME CARE OF PT AT THIS TIME. PT CONTINUES TO ISOLATE IN HER ROOM. ASKED FOR CHIPS AND ICE CREAM. NO COMPLAINTS OR NEEDS.
[2018-08-29] MEDS: QUEtiapine FUM 25 MG TAB PO SCH (20:45)
[2018-08-29] MEDS ORDERED: buPROPion SR 100 MG TABSR PO SCH (21:00)
[2018-08-30] MEDS: MULTIVITAMINS PO SCH (09:00)
[2018-08-30] MEDS: MAG HYD/AL HYD/SIMETH 30ML UDC PO PRN (09:07)
[2018-08-30] MEDS: buPROPion SR 100 MG TABSR PO SCH (09:51)
[2018-08-30] MEDS: PANTOPRAZOLE SOD 20 MG TABEC PO SCH (09:51)
[2018-08-30] MEDS: QUEtiapine FUM 25 MG TAB PO SCH ×2 (09:53→20:17)
--- NOTE | 2018-08-30 11:27 | BHS Progress Note ---
[facility] - Subjective Progress Notes Subjective "I just don't want to be around anyone today. I don't want to talk. I didn't sleep at all last night." She rates her depression level a 6, irritability 6, SI 0, anxiety 7. Suicidal Ideation: None Homicidal Ideation: None [facility] - Objective Physical Exam Vital Signs Vital Signs Date Time Temp Pulse Resp B/P (MAP) Pulse Ox O2 Delivery O2 Flow Rate FiO2 08/29/18 09:19 98.5 74 97/72 (80) 96 Room Air 08/28/18 09:30 16 Muscle Strength and Tone: WNL Gait and Station: Steady [facility] Medications Reviewed: Side Effects, Benefits of Medication, Risks Allergies Reviewed: Yes Mental Status Exam General Appearance: Casual, Good Eye Contact, Cooperative, Polite, Good Interaction, Unkept Speech: Clear, Spontaneous, Normal Rate, Normal Rhythm, Normal Volume, Normal Tone Mood: Dysthmic/Depressed, Other (irritable) Affect: Anxious, Agitated Thought Process: Organized, Logical, Goal Directed Thought Content: No Auditory Halllucinations, No Visual Hallucinations Sensorium: Clear Cognition: Alert & Oriented-Person, Alert & Oriented-Place, Alert & Oriented- Time, Ekuje-Hznolfhm-Ejixhuofo Memory: Immediate, Recent, Remote Intelligence: Above Average Insight Judgment: Good [facility] Assessment and Plan Plsz-cz-Typa Encounter Date: Aug 30, 2018 Bqds-uj-Bpjq Encounter Time: 11:00 [facility] Plan: Admit to Unit, Necessary Precautions, Individual/Group Therapy, Admin/Titrate Meds, Educate Patient Tobacco Medications: Bupropion (Wellbutrin) Multpiple Antipsychotics Used: No Problems: (1) Borderline personality disorder Status: Chronic (2) Post traumatic stress disorder Status: Chronic (3) Stimulant use disorder Status: Chronic Condition Client attended rounding with clinical team. She endorses not wanting to get out of bed, feeling irritable and not wanting to be around people today. She reports poor sleep last night and requests to take her Wellbutrin in the morning as she has in the past. She denies suicidal thoughts today. Will continue with discharge planning. Will change Bupropion 100mg to QAM dosing. Continue Seroquel 25mg QHS and once daily PRN. RIACRDO GARCIA NP Aug 30, 2018 11:27
[2018-08-30 15:02] VITALS: BP 122/64
[2018-08-30] MEDS: QUEtiapine FUM 25 MG TAB PO PRN (15:12)
--- NOTE | 2018-08-30 20:01 | NUR ---
REPORT FROM LIAM/MARKELL. WILL ASSUME CARE OF PT AT THIS TIME. PT CONTINUES TO ISOLATE IN ROOM. RESTING, EYES CLOSED, NO DISTRESS NOTED.
--- NOTE | 2018-08-31 02:00 | NUR ---
PT AWAKE AND STATES SHE IS HUNGRY AND NOT ABLE TO SLEEP. REQUESTING A BAG OF CHIPS. REPEAT SEROQUEL 25MG PER [facility] AND RECREATION MANAGER AT THIS TIME.
[2018-08-31] MEDS ORDERED: QUEtiapine FUM 25 MG TAB PO ONE (02:40)
[2018-08-31 03:04] VITALS: BP 91/68
[2018-08-31] MEDS: MULTIVITAMINS PO SCH (08:18)
[2018-08-31] MEDS: PANTOPRAZOLE SOD 20 MG TABEC PO SCH (08:18)
[2018-08-31] MEDS: buPROPion SR 100 MG TABSR PO SCH (08:18)
[2018-08-31] MEDS ORDERED: buPROPion SR 100 MG TABSR PO SCH (09:00)
[2018-08-31] MEDS ORDERED: BUPR-472 PO (09:03)
[2018-08-31] MEDS ORDERED: QUET25TA30 PO (09:04)
[2018-08-31] MEDS ORDERED: QUET50TA21 PO (09:04)
[2018-08-31] MEDS ORDERED: PANT40TA65 PO (09:04)
[2018-08-31] MEDS ORDERED: NIC10R INH (09:05)
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
== END 2018-08-31 09:30 | disposition home or self-care (01) | DRG 883 ==
LOC: BHS 09:18
PROVIDERS: ADMIT Psychiatry & Neurology Psychiatry; ATTEND Psychiatry & Neurology Psychiatry
DX: F60.3 Borderline personality disorder (principal); F15.20 Other stimulant dependence, uncomplicated; F43.10 Post-traumatic stress disorder, unspecified; Z72.0 Tobacco use; Z65.3 Problems related to other legal circumstances; Z91.5 Personal history of self-harm; Z86.69 Personal history of other diseases of the nervous system and sense organs
CPT/HCPCS: 80305; 80320; 80329; 81001; 81025; 82040; 82247; 82310; 82374; 82435; 82565; 82947; 83735; 84075; 84132; 84155; 84295; 84443; 84450; 84460; 84520; 85025; 99284; S0119

== ENCOUNTER 2018-10-06 21:00 | Emergency (ER) | payer MEDICAID ==
[~2018-10-06 21:00] MED LIST changes: +BUPR-472 PO; +NIC10R INH; +PANT40TA65 PO; +QUET25TA30 PO; +QUET50TA21 PO
[2018-10-06 21:04] VITALS: BP 139/90
[2018-10-06 21:47] LABS: PLATELET COUNT, AUTOMATED 292 K/uL (150-450)
--- NOTE | 2018-10-06 23:10 | ER Report ---
History and Physical Time Seen By MD: 23:09 Hx. of Stated Complaint: EVERYTHING HAS COME TO A HEAD. DOING DRUGS TO COPE. NOTHING IS HELPING. 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 Patient reports that "everything is coming to a head". Patient is concerned that either methamphetamine multiple her or something else well. Patient reports that she isn't interested in attending drug detox and to better coping mechanisms for her stress. Patient was admitted in August for a similar situation. REVIEW OF SYSTEMS: Constitutional: No fever, no chills. Eyes: No discharge. ENT: No sore throat. Cardiovascular: No chest pain, no palpitations. Respiratory: No cough, no shortness of breath. Gastrointestinal: No abdominal pain, no vomiting. Genitourinary: No hematuria. Musculoskeletal: No back pain. Skin: No rashes. Neurological: No headache. Psych: + anxious appearing, recent meth use Allergies: Coded Allergies: Penicillins (Verified Allergy, Unknown, 05/07/18) Home Meds Reported Medications Nicotine (NICOTROL) 10 Mg/Inh Ctr, 10 MG INH PRN PRN for NICOTINE REPLACEMENT 08/31/18 Pantoprazole Sodium (PANTOPRAZOLE SODIUM) 40 Mg Tablet.dr, 20 MG PO QDAY, TAB.SR 08/31/18 Quetiapine Fumarate (SEROQUEL) 50 Mg Tablet, 50 MG PO QHS 08/31/18 Quetiapine Fumarate (SEROQUEL) 25 Mg Tablet, 25 MG PO Q8H PRN for ANXIET Y/AGITATION 08/31/18 Bupropion Hcl (WELLBUTRIN XL) 150 Mg Tab.er.24h, 150 MG PO QDAY, TAB 08/31/18 Hx Smoking: Yes Smoking Status: Heavy Tobacco Smoker Exposure to Second Hand Smoke?: Yes Hx Substance Use Disorder: Yes Hx Alcohol Use: Yes Constitutional Vital Sign - Last 24 Hours 10/06/18 21:04 Temp 99.1 Pulse 118 Resp 20 B/P (MAP) 139/90 Pulse Ox 100 O2 Delivery Room Air Physical Exam General Appearance: The patient is alert, has no immediate need for airway protection and no signs of toxicity. Anxious appearing, tearful Eyes: Pupils equal and round no pallor or injection. ENT, Mouth: Mucous membranes are moist. Respiratory: There are no retractions, lungs are clear to auscultation. Cardiovascular: Regular rate and rhythm. Gastrointestinal: Abdomen is soft and non tender, no masses, bowel sounds normal. Neurological: No focal neurological deficits, tremulous at times Skin: Warm and dry, no rashes. Musculoskeletal: Neck is supple non tender. Extremities are nontender, nonswollen and have full range of motion. DIFFERENTIAL DIAGNOSIS: After history and physical exam differential diagnosis was considered for substance abuse, polysubstance abuse, depression, anxiety, suicidal ideations Medical Decision Making Data Points Result Diagram: 10/06/18212810/06/182128 Laboratory Hematology Test 10/06/18 21:29 Red Blood Count 4.43 M/uL (4.17-5.56) Mean Corpuscular Volume 91.9 fL (80.0-96.0) Mean Corpuscular Hemoglobin 31.7 pg (26.0-33.0) Mean Corpuscular Hemoglobin Concent 34.5 g/dL (32.0-36.0) Red Cell Distribution Width 13.1 % (11.5-14.5) Mean Platelet Volume 7.8 fL (7.2-11.1) Neutrophils (%) (Auto) 64.0 % (39.4-72.5) Lymphocytes (%) (Auto) 29.2 % (17.6-49.6) Monocytes (%) (Auto) 5.9 % (4.1-12.4) Eosinophils (%) (Auto) 0.5 % (0.4-6.7) Basophils (%) (Auto) 0.4 % (0.3-1.4) Nucleated RBC Relative Count (auto) 0.0 /100WBC Neutrophils # (Auto) 3.5 K/uL (2.0-7.4) Lymphocytes # (Auto) 1.6 K/uL (1.3-3.6) Monocytes # (Auto) 0.3 K/uL (0.3-1.0) Eosinophils # (Auto) 0.0 K/uL (0.0-0.5) Basophils # (Auto) 0.0 K/uL (0.0-0.1) Nucleated RBC Absolute Count (auto) 0.00 K/uL Urine Color Yellow Urine Clarity Clear Urine pH 9.0 pH (4.8-9.5) Urine Specific Elkins 1.016 Urine Protein 30 mg/dL (NEGATIVE) Urine Glucose (UA) Negative mg/dL (NEGATIVE) Urine Ketones Negative mg/dL (NEGATIVE) Urine Blood Negative (NEGATIVE) Urine Nitrite Negative (NEGATIVE) Urine Bilirubin Negative (NEGATIVE) Urine Urobilinogen Negative mg/dL (0.2-1.9) Urine Leukocyte Esterase Negative (NEGATIVE) Urine RBC 1 /HPF (0-2/HPF) Urine WBC <1 /HPF (0-5/HPF) Urine Squamous Epithelial Cells Few /LPF (</=FEW) Urine Bacteria Negative /HPF (NONE-FEW) Urine Mucus None /HPF (NONE-FEW) Urine HCG, Qualitative Negative (NEGATIVE) Sodium Level 147 mmol/L (137-145) Potassium Level 3.9 mmol/L (3.5-5.0) Chloride Level 107 mmol/L (98-107) Carbon Dioxide Level 24 mmol/L (22-31) Blood Urea Nitrogen 5 mg/dl (7-18) Creatinine 0.80 mg/dl (0.52-1.04) Glomerular Filtration Rate Calc > 60.0 Random Glucose 100 mg/dl (75-110) Calcium Level 9.4 mg/dl (8.4-10.2) Magnesium Level 1.5 mg/dl (1.7-2.2) Total Bilirubin < 0.1 mg/dl (0.2-1.3) Aspartate Amino Transf (AST/SGOT) 17 U/L (0-35) Alanine Aminotransferase (ALT/SGPT) 21 U/L (0-56) Alkaline Phosphatase 71 U/L (0-126) Total Protein 6.7 g/dl (6.3-8.2) Albumin 4.2 g/dl (3.5-5.0) Salicylates Level < 10 mg/L Salicylate Last Dose Date unknown Urine Opiates Screen Negative Acetaminophen Level < 10 ug/ml Urine Barbiturates Screen Negative Ur Tricyclic Antidepressants Screen Positive Urine Phencyclidine Screen Negative Urine Amphetamines Screen Negative Urine Benzodiazepines Screen Negative Urine Cocaine Screen Negative Urine Cannabinoids Screen Negative Serum Alcohol 51 mg/dl Chemistry Test 10/06/18 21:29 White Blood Count 5.5 k/uL (4.5-11.0) Red Blood Count 4.43 M/uL (4.17-5.56) Hemoglobin 14.0 g/dL (12.0-16.0) Hematocrit 40.7 % (34.0-47.0) Mean Corpuscular Volume 91.9 fL (80.0-96.0) Mean Corpuscular Hemoglobin 31.7 pg (26.0-33.0) Mean Corpuscular Hemoglobin Concent 34.5 g/dL (32.0-36.0) Red Cell Distribution Width 13.1 % (11.5-14.5) Platelet Count 292 K/uL (150-450) Mean Platelet Volume 7.8 fL (7.2-11.1) Neutrophils (%) (Auto) 64.0 % (39.4-72.5) Lymphocytes (%) (Auto) 29.2 % (17.6-49.6) Monocytes (%) (Auto) 5.9 % (4.1-12.4) Eosinophils (%) (Auto) 0.5 % (0.4-6.7) Basophils (%) (Auto) 0.4 % (0.3-1.4) Nucleated RBC Relative Count (auto) 0.0 /100WBC Neutrophils # (Auto) 3.5 K/uL (2.0-7.4) Lymphocytes # (Auto) 1.6 K/uL (1.3-3.6) Monocytes # (Auto) 0.3 K/uL (0.3-1.0) Eosinophils # (Auto) 0.0 K/uL (0.0-0.5) Basophils # (Auto) 0.0 K/uL (0.0-0.1) Nucleated RBC Absolute Count (auto) 0.00 K/uL Urine Color Yellow Urine Clarity Clear Urine pH 9.0 pH (4.8-9.5) Urine Specific Elkins 1.016 Urine Protein 30 mg/dL (NEGATIVE) Urine Glucose (UA) Negative mg/dL (NEGATIVE) Urine Ketones Negative mg/dL (NEGATIVE) Urine Blood Negative (NEGATIVE) Urine Nitrite Negative (NEGATIVE) Urine Bilirubin Negative (NEGATIVE) Urine Urobilinogen Negative mg/dL (0.2-1.9) Urine Leukocyte Esterase Negative (NEGATIVE) Urine RBC 1 /HPF (0-2/HPF) Urine WBC <1 /HPF (0-5/HPF) Urine Squamous Epithelial Cells Few /LPF (</=FEW) Urine Bacteria Negative /HPF (NONE-FEW) Urine Mucus None /HPF (NONE-FEW) Urine HCG, Qualitative Negative (NEGATIVE) Glomerular Filtration Rate Calc > 60.0 Calcium Level 9.4 mg/dl (8.4-10.2) Magnesium Level 1.5 mg/dl (1.7-2.2) Total Bilirubin < 0.1 mg/dl (0.2-1.3) Aspartate Amino Transf (AST/SGOT) 17 U/L (0-35) Alanine Aminotransferase (ALT/SGPT) 21 U/L (0-56) Alkaline Phosphatase 71 U/L (0-126) Total Protein 6.7 g/dl (6.3-8.2) Albumin 4.2 g/dl (3.5-5.0) Salicylates Level < 10 mg/L Salicylate Last Dose Date unknown Urine Opiates Screen Negative Acetaminophen Level < 10 ug/ml Urine Barbiturates Screen Negative Ur Tricyclic Antidepressants Screen Positive Urine Phencyclidine Screen Negative Urine Amphetamines Screen Negative Urine Benzodiazepines Screen Negative Urine Cocaine Screen Negative Urine Cannabinoids Screen Negative Serum Alcohol 51 mg/dl Toxicology Test 10/06/18 21:29 Salicylates Level < 10 mg/L Salicylate Last Dose Date unknown Urine Opiates Screen Negative Acetaminophen Level < 10 ug/ml Urine Barbiturates Screen Negative Ur Tricyclic Antidepressants Screen Positive Urine Phencyclidine Screen Negative Urine Amphetamines Screen Negative Urine Benzodiazepines Screen Negative Urine Cocaine Screen Negative Urine Cannabinoids Screen Negative Serum Alcohol 51 mg/dl Urinalysis Test 10/06/18 21:29 Urine Color Yellow Urine Clarity Clear Urine pH 9.0 pH (4.8-9.5) Urine Specific Elkins 1.016 Urine Protein 30 mg/dL (NEGATIVE) Urine Glucose (UA) Negative mg/dL (NEGATIVE) Urine Ketones Negative mg/dL (NEGATIVE) Urine Blood Negative (NEGATIVE) Urine Nitrite Negative (NEGATIVE) Urine Bilirubin Negative (NEGATIVE) Urine Urobilinogen Negative mg/dL (0.2-1.9) Urine Leukocyte Esterase Negative (NEGATIVE) Urine RBC 1 /HPF (0-2/HPF) Urine WBC <1 /HPF (0-5/HPF) Urine Squamous Epithelial Cells Few /LPF (</=FEW) Urine Bacteria Negative /HPF (NONE-FEW) Urine Mucus None /HPF (NONE-FEW) Urine HCG, Qualitative Negative (NEGATIVE) ED Course/Re-evaluation ED Course Patient is a 38-year-old female here with complaints of depression, anxiety, methamphetamine use recent treatment in detox in August. Patient reports that her last use was several hours ago. Patient is concerned that either methamphetamine or going to kill her or something else will. She does voice that she has had fleeting suicidal ideations. EKG was completed because of a TCA positive on drug screen. EKG showed no arrhythmias or QRS widening. I discussed the patient with Dr. Ferrell who accepted the patient to the behavioral health services unit. Patient was stable at time of admission. Decision to Disposition Date: October 06, 2018 Decision to Disposition Time: 23:20 Depart Departure Latest Vital Signs Vital Signs Date Time Temp Pulse Resp B/P (MAP) Pulse Ox O2 Delivery O2 Flow Rate FiO2 10/06/18 21:04 99.1 118 20 139/90 100 Room Air Impression: Primary Impression: Anxiety attack Additional Impressions: Methamphetamine use disorder, severe Suicidal ideations Condition: Improved Disposition: XFER TO [facility] Problem Qualifiers TIERRA MONSALVE DO October 06, 2018 23:10
--- NOTE | 2018-10-06 23:29 | EKG ---
FACILITY: [facility] PATIENT NAME: KAREN SAENZ : [id number] MR: [id number] V: [id number] EXAM DATE: ORDERING PHYSICIAN: TIERRA MONSALVE TECHNOLOGIST: GOLDIE Hammer Reason : RHYTHM Blood Pressure : / mmHG Vent. Rate : 101 BPM Atrial Rate : 101 BPM P-R Int : 146 ms QRS Dur : 082 ms QT Int : 366 ms P-R-T Axes : 045 074 036 degrees QTc Int : 474 ms Sinus tachycardia Possible left atrial enlargement Poor R wave progression anterior leads Abnormal ECG Confirmed by AMANUEL WESTON ([id number]) on 10/07/2018 10:47:14 AM Referred By: Confirmed By:AMANUEL WESTON
== END 2018-10-06 23:33 ==
LOC: ER 21:45
DX: R41.9 Unspecified symptoms and signs involving cognitive functions and awareness (principal); F15.20 Other stimulant dependence, uncomplicated; R45.851 Suicidal ideations; R00.0 Tachycardia, unspecified
CPT/HCPCS: 36415; 80305; 81001; 81025; 83735; 84443; 85025; 93005; 99284; G0480; 80320; 80329; 82040; 82247; 82310; 82374; 82435; 82565; 82947; 84075; 84132; 84155; 84295; 84450; 84460; 84520

== ENCOUNTER 2018-10-06 23:23 | Inpatient (IN) | payer MEDICAID ==
[~2018-10-06] VITALS: Ht 162.6 cm; Wt 63.5 kg
[2018-10-06] MEDS ORDERED: QUEtiapine FUM 25 MG TAB PO PRN (23:30)
[2018-10-07 02:52] VITALS: BP 127/87
[2018-10-07] MEDS: MULTIVITAMINS TAB PO SCH (08:36)
[2018-10-07] MEDS: FAMOTIDINE 20 MG TAB PO SCH (10:27)
[2018-10-07] MEDS ORDERED: ALBUTEROL 8 GM INHALER INH PRN (11:35)
[2018-10-07] MEDS: NICOTINE INH SYSTEM 10 MG/INH INH PRN ×2 (11:49→19:50)
[2018-10-07] MEDS ORDERED: NICOTINE CARTRIDGE 1 EA PO PRN (11:50)
[2018-10-07] MEDS ORDERED: HYPROMELLOSE 0.4% LUB 15ML BTL OU PRN (14:45)
[2018-10-07] MEDS: QUEtiapine FUM 25 MG TAB PO SCH (20:08)
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
[2018-10-07] MEDS ORDERED: PATCH REMOVAL 1 EA TP SCH (21:00)
[2018-10-07] MEDS ORDERED: QUEtiapine FUM 25 MG TAB PO SCH (21:00)
[2018-10-08 04:52] VITALS: BP 92/68
[2018-10-08] MEDS: MULTIVITAMINS TAB PO SCH (08:04)
[2018-10-08] MEDS: FAMOTIDINE 20 MG TAB PO SCH (08:04)
[2018-10-08] MEDS: ACETAMINOPHEN 325 MG TAB PO PRN ×2 (08:07→15:26)
[2018-10-08] MEDS: MAG HYD/AL HYD/SIMETH 30ML UDC PO PRN ×2 (09:44→18:42)
[2018-10-08 09:50] VITALS: BP 98/68
[2018-10-08] MEDS ORDERED: LOPERAMIDE HCL 2 MG CAP PO PRN (09:50)
[2018-10-08] MEDS ORDERED: LOPERAMIDE HCL 2 MG CAP PO ONE (09:50)
--- NOTE | 2018-10-08 14:44 | BHS Progress Note ---
S - Subjective Progress Notes Subjective Pt seen in conference room with her girlfriend Landy. Pt has been up and down with her mood, labile affect, at times in tears over a stressor, at time euthymic, never manic. Fidgity. Overwhelmed with stressors-- financial, misses her dog, Landy is going to move their belongings to a new apartment this weekend and pt really wants to help but we all advised her strongly to stay in hospital until we can get residential treatment arranged. Her risk of relapse is very high, even without her burden of psychosocial stressors. Slept OK last night with seroquel, denies oversedation. Pt will complete application to [facility] program today. Treatment team tomorrow with Landy and pt's PO. Suicidal Ideation: None Homicidal Ideation: None [facility] - Objective Physical Exam Vital Signs Vital Signs 10/08/18 09:50 Temp 98.5 Pulse 104 Resp 18 B/P (MAP) 98/68 (78) Pulse Ox 96 O2 Delivery Room Air Muscle Strength and Tone: WNL Gait and Station: Steady BH Medications Reviewed: Side Effects, Benefits of Medication, Risks Mental Status Exam General Appearance: Casual, Good Eye Contact, Cooperative, Good Interaction, Tearful, Psychomotor Agitation Speech: Clear, Other (rapid) Mood: Dysthmic/Depressed Affect: Tearful, Anxious, Agitated Thought Process: Other (circumstantial) Thought Content: No Suicidal Ideation, No Homicidal Ideation, No Delusions, No Auditory Halllucinations, No Visual Hallucinations, No Thought Broadcasting, No Ideas of Reference, No Obsessions, No Compulsions, No Other Sensorium: Clear Cognition: Alert & Oriented-Person, Alert & Oriented-Place, Alert & Oriented- Time, [id number]-[id number] Memory: Immediate, Recent, Remote Intelligence: Average Insight Judgment: Fair [facility] Assessment and Plan [id number] Encounter Date: October 08, 2018 [id number] Encounter Time: 09:30 [facility] Plan: Necessary Precautions, Individual/Group Therapy, Admin/Titrate Meds Tobacco Medications: Started Multpiple Antipsychotics Used: No Problems: (1) Methamphetamine use disorder, severe (2) Suicidal ideations Status: Acute [place] GRAVES MD October 08, 2018 14:44
[2018-10-08] MEDS: QUEtiapine FUM 25 MG TAB PO SCH (20:49)
[2018-10-09 05:35] VITALS: BP 105/67
[2018-10-09] MEDS: FAMOTIDINE 20 MG TAB PO SCH (07:53)
[2018-10-09] MEDS: MULTIVITAMINS TAB PO SCH (07:53)
--- NOTE | 2018-10-09 14:54 | BHS Progress Note ---
S - Subjective Progress Notes Subjective Pt seen in treatment team with her girlfriend Landy attending also her PO attending. Pt still anxious, labile, worried about multiple psychosocial stressors, tearful on and off. Still committed to going to rehab. Application to [facility] has been submitted, we are waiting on results of TB test to be read tomorrow. We should hear from A if she gets accepted on Friday. Pt felt oversedated from seroquel 100 mg last night, so tonight we will try lower dose at 50 mg. Suicidal Ideation: None Homicidal Ideation: None [facility] - Objective Physical Exam Vital Signs Vital Signs 10/08/18 10/09/18 09:50 05:35 Temp 98.6 Pulse 118 Resp 18 B/P (MAP) 105/67 (80) Pulse Ox 97 O2 Delivery Room Air Muscle Strength and Tone: WNL Gait and Station: Steady BH Medications Reviewed: Side Effects, Benefits of Medication, Risks Mental Status Exam General Appearance: Casual, Well Groomed, Good Eye Contact, Cooperative, Good Interaction, Tearful, Psychomotor Agitation Speech: Clear, Other (rapid) Mood: Dysthmic/Depressed Affect: Sad, Tearful, Anxious, Agitated, Other (very labile) Thought Process: Other (circumstantial) Thought Content: No Suicidal Ideation, No Homicidal Ideation, No Delusions, No Auditory Halllucinations, No Visual Hallucinations, No Thought Broadcasting, No Ideas of Reference, No Obsessions, No Compulsions, No Other Sensorium: Clear Cognition: Alert & Oriented-Person, Alert & Oriented-Place, Alert & Oriented- Time, [id number]-[id number] Memory: Immediate, Recent, Remote Intelligence: Average Insight Judgment: Fair [facility] Assessment and Plan [id number] Encounter Date: October 09, 2018 [id number] Encounter Time: 09:00 [facility] Plan: Necessary Precautions, Individual/Group Therapy, Admin/Titrate Meds Tobacco Medications: Started Multpiple Antipsychotics Used: No Problems: (1) Methamphetamine use disorder, severe (2) Suicidal ideations Status: Acute (3) Borderline personality disorder Status: Chronic (4) Post traumatic stress disorder Status: Chronic [place] GRAVES MD October 09, 2018 14:54
[2018-10-09] MEDS: NICOTINE INH SYSTEM 10 MG/INH INH PRN (15:22)
[2018-10-09] MEDS ORDERED: QUEtiapine FUM 25 MG TAB PO SCH (21:00)
[2018-10-10 05:53] VITALS: BP 96/62
[2018-10-10] MEDS: MULTIVITAMINS TAB PO SCH (08:40)
[2018-10-10] MEDS: FAMOTIDINE 20 MG TAB PO SCH (08:40)
--- NOTE | 2018-10-10 10:08 | BHS Progress Note ---
[facility] - Subjective Progress Notes Subjective "I've got too much to do to stay here." Patient has written AMA letter requesting to discharge today Rating anxiety 4/10, denies thoughts of hurting self, depression 2/10 Mood "I don't know how to answer that." States PO is mandating UA daily until goes to residential treatment Has appt. at [facility] 10/14/18 @ 1100 Will be on probation for 1 1./2 years Treatment team 10/09 with girlfriend Landy and PO. Application for [facility] rehab in [place], [place] has been submitted Will have TB test read today Tolerated Quetiapine 50mg po @ hs well without oversedation today reported Suicidal Ideation: None Homicidal Ideation: None BHS - Objective Physical Exam Vital Signs Vital Signs Date Time Temp Pulse Resp B/P (MAP) Pulse Ox O2 Delivery O2 Flow Rate FiO2 10/10/18 05:53 98.4 70 15 96/62 (73) 96 Room Air Muscle Strength and Tone: WNL Gait and Station: Steady [facility] Medications Reviewed: Side Effects, Benefits of Medication, Risks Mental Status Exam General Appearance: Casual, Well Groomed, Good Eye Contact, Cooperative, Good Interaction, Tearful, Psychomotor Agitation Speech: Clear, Other (rapid) Mood: Dysthmic/Depressed Affect: Sad, Tearful, Anxious, Agitated, Other (very labile) Thought Process: Other (circumstantial) Thought Content: No Suicidal Ideation, No Homicidal Ideation, No Delusions, No Auditory Halllucinations, No Visual Hallucinations, No Thought Broadcasting, No Ideas of Reference, No Obsessions, No Compulsions, No Other Sensorium: Clear Cognition: Alert & Oriented-Person, Alert & Oriented-Place, Alert & Oriented- Time, [id number]-[id number] Memory: Immediate, Recent, Remote Intelligence: Average Insight Judgment: Fair Lab Medications (Trade) Dose Ordered Sig/[place] Route PRN Reason Start Time Stop Time Status Last Admin Dose Admin Acetaminophen (Tylenol(*)325 Mg Tab (Or Equiv)) 650 mg Q6H PRN PO FEVER/PAIN 10/06/18 23:30 11/05/18 23:29 10/08/18 15:26 Al Hydrox/Mg Hydrox/Simethicone (Maalox(*) 30 ml Udcup (Or Equiv)) 30 ml BID PRN PO HEARTBURN 10/06/18 23:30 11/05/18 23:29 10/08/18 18:42 Albuterol Sulfate (Ventolin Hfa 8 Gm Inh (Or Equiv)) 2 PUFFS Q6HR PRN INH SHORTNESS OF BREATH 10/07/18 11:35 11/06/18 11:34 10/08/18 20:29 Famotidine (Pepcid(*) 20 Mg Tab (Or Equiv)) 20 mg QAM PO 10/07/18 10:05 11/06/18 10:04 10/10/18 08:40 Hypromellose (Natural Balance Tears 0.4% 15 ml Btl) 2 DROPS IN EACH EYE EVERY ... Q2H PRN OU DRY EYES 10/07/18 14:45 11/06/18 14:44 10/07/18 20:07 Loperamide HCl (Imodium 2 Mg Cap (Or Equiv)) 4 mg ONCE ONCE PO 10/08/18 09:50 10/08/18 09:51 DC 10/08/18 09:55 Multivitamins (Thera-M Enhanced Tab (Or Equiv)) 1 each QDAY PO 10/07/18 09:00 11/06/18 08:59 10/10/18 08:40 Nicotine (Nicotrol Inhaler 10 Mg/Inh (Or Equiv)) 10 mg PRN PRN INH NICOTINE REPLACEMENT 10/06/18 23:45 11/05/18 23:44 10/09/18 15:22 Quetiapine Fumarate (SEROquel 25 MG TAB (OR EQUIV)) 50 mg QHS PO 10/09/18 21:00 11/08/18 20:59 10/09/18 21:45 Microbiology Vital Signs Date Time Temp Pulse Resp B/P (MAP) Pulse Ox O2 Delivery O2 Flow Rate FiO2 10/10/18 05:53 98.4 70 15 96/62 (73) 96 Room Air Imaging Laboratory Tests Test 10/06/18 21:29 10/08/18 11:00 Range/Units White Blood Count 5.5 4.5-11.0 k/uL Red Blood Count 4.43 4.17-5.56 M/uL Hemoglobin 14.0 12.0-16.0 g/dL Hematocrit 40.7 34.0-47.0 % Mean Corpuscular Volume 91.9 80.0-96.0 fL Mean Corpuscular Hemoglobin 31.7 26.0-33.0 pg Mean Corpuscular Hemoglobin Concent 34.5 32.0-36.0 g/dL Red Cell Distribution Width 13.1 11.5-14.5 % Platelet Count 292 150-450 K/uL Mean Platelet Volume 7.8 7.2-11.1 fL Neutrophils (%) (Auto) 64.0 39.4-72.5 % Lymphocytes (%) (Auto) 29.2 17.6-49.6 % Monocytes (%) (Auto) 5.9 4.1-12.4 % Eosinophils (%) (Auto) 0.5 0.4-6.7 % Basophils (%) (Auto) 0.4 0.3-1.4 % Nucleated RBC Relative Count (auto) 0.0 /100WBC Neutrophils # (Auto) 3.5 2.0-7.4 K/uL Lymphocytes # (Auto) 1.6 1.3-3.6 K/uL Monocytes # (Auto) 0.3 0.3-1.0 K/uL Eosinophils # (Auto) 0.0 0.0-0.5 K/uL Basophils # (Auto) 0.0 0.0-0.1 K/uL Nucleated RBC Absolute Count (auto) 0.00 K/uL Urine Color Yellow Urine Clarity Clear Urine pH 9.0 4.8-9.5 pH Urine Specific [place] 1.016 Urine Protein 30 NEGATIVE mg/dL Urine Glucose (UA) Negative NEGATIVE mg/dL Urine Ketones Negative NEGATIVE mg/dL Urine Blood Negative NEGATIVE Urine Nitrite Negative NEGATIVE Urine Bilirubin Negative NEGATIVE Urine Urobilinogen Negative 0.2-1.9 mg/dL Urine Leukocyte Esterase Negative NEGATIVE Urine RBC 1 0-2/HPF /HPF Urine WBC <1 0-5/HPF /HPF Urine Squamous Epithelial Cells Few </=FEW /LPF Urine Bacteria Negative NONE-FEW /HPF Urine Mucus None NONE-FEW /HPF Urine HCG, Qualitative Negative NEGATIVE Sodium Level 147 137-145 mmol/L Potassium Level 3.9 3.5-5.0 mmol/L Chloride Level 107 98-107 mmol/L Carbon Dioxide Level 24 22-31 mmol/L Blood Urea Nitrogen 5 7-18 mg/dl Creatinine 0.80 0.52-1.04 mg/dl Glomerular Filtration Rate Calc > 60.0 Random Glucose 100 75-110 mg/dl Calcium Level 9.4 8.4-10.2 mg/dl Magnesium Level 1.5 1.7-2.2 mg/dl Total Bilirubin < 0.1 0.2-1.3 mg/dl Aspartate Amino Transf (AST/SGOT) 17 0-35 U/L Alanine Aminotransferase (ALT/SGPT) 21 0-56 U/L Alkaline Phosphatase 71 0-126 U/L Total Protein 6.7 6.3-8.2 g/dl Albumin 4.2 3.5-5.0 g/dl Thyroid Stimulating Hormone (TSH) 1.24 0.46-4.68 uIU/ml Salicylates Level < 10 mg/L Salicylate Last Dose Date unknown Urine Opiates Screen Negative Acetaminophen Level < 10 ug/ml Urine Barbiturates Screen Negative Ur Tricyclic Antidepressants Screen Positive Urine Phencyclidine Screen Negative Urine Amphetamines Screen Negative Urine Benzodiazepines Screen Negative Urine Cocaine Screen Negative Urine Cannabinoids Screen Negative Serum Alcohol 51 mg/dl Laboratory Tests 10/08/18 11:00: [facility] Assessment and Plan [id number] Encounter Date: Oct 10, 2018 [id number] Encounter Time: 10:06 [facility] Plan: Necessary Precautions, Individual/Group Therapy, Admin/Titrate Meds Tobacco Medications: Started Multpiple Antipsychotics Used: No Problems: (1) Borderline personality disorder Status: Chronic (2) Post traumatic stress disorder Status: Chronic (3) Methamphetamine use disorder, severe Status: Chronic (4) Adjustment disorder with disturbance of emotion Status: Acute Condition Requesting to discharge AMA Recommend staying until treatment team Thursday 10/12 to further work on discharge planning Continue medications, maintain precautions ABIMAEL LAZCANO NP Oct 10, 2018 10:08
[2018-10-10] MEDS: NICOTINE INH SYSTEM 10 MG/INH INH PRN (12:01)
[2018-10-10] MEDS ORDERED: FAMO20TA28 PO (12:58)
[2018-10-10] MEDS ORDERED: MULT-1379 PO (12:59)
--- NOTE | 2018-10-10 14:54 | DISCHARGE SUMMARY ---
ADMISSION DATE: October 06, 2018 DISCHARGE DATE: October 10, 2018, against medical advice. ATTENDING PROVIDER ADDIE Naranjo FINAL DIAGNOSES PER DIAGNOSTIC AND STATISTICAL MANUAL OF MENTAL DISORDERS, FIFTH EDITION 1. Stimulant use disorder, methamphetamine, severe. 2. Substance-induced mood disorder. 3. Posttraumatic stress disorder. 4. Borderline personality disorder. REASON FOR ADMISSION/BRIEF HISTORY This patient is a 38-year-old female who presented to the Emergency Room reporting depression, recent methamphetamine use, and requesting rehab admission. Patient was previously on the Behavioral Health Unit August 28, 2018, for a four-day hospital stay, and after leaving, did relapse to methamphetamine use and did spend some time in assisted. Her housing officer has encouraged her to consider residential rehab treatment. She reports being fearful of rehab due to past trauma issues. Current stressors include inter- partner relationship stressors, potential loss of vehicle due to repossession, and unstable housing. Patient has independently recently called [facility] in [place] and [facility] in [place] looking for rehab admission potential. She was seen at [facility] the day prior to admission to register for outpatient treatment there. After that, she relapsed to methamphetamine use and became extremely agitated, upset, and depressed due to fear that her ski patrol officer would find out and incarcerate her. She developed suicidal ideation the night prior to admission, had verbalized thoughts of hanging herself in her head. Also has a family history of her father committing suicide by hanging. She reports loss of sleep the night prior to admission due to multiple stressors. She was agreeable to a voluntary admission for further evaluation and treatment. PHYSICAL EXAMINATION Please see emergency room notes for physical exam. VITAL SIGNS: Vital signs at time of admission include temperature 99.4, pulse of 113, respiratory rate 16, blood pressure 127/87, pulse oximetry 97% on room air. Vital signs at time of discharge include temperature of 98.4, pulse of 70, respiratory rate 15, blood pressure 96/62, pulse oximetry 96% on room air. LABORATORY DATA CBC within normal limits. Chemistry panel within normal limits with the exception of magnesium low at 1.5, BUN low at 5. Thyroid stimulating hormone 1.24. Urine screen within normal limits. Toxicology includes serum alcohol levels 151, salicylate and acetaminophen levels less than 10. Urine screen negative for opiates, barbiturates, phencyclidines, amphetamines, benzodiazepines, cocaine, and cannabinoids; positive for tricyclics. Repeat urine drug screen at time of discharge is negative for opiates, barbiturates, tricyclics, phencyclidines, amphetamines, benzodiazepines, cannabis, and cocaine. MENTAL STATUS EXAMINATION GENERAL APPEARANCE, BEHAVIOR, AND ATTITUDE: Patient is cooperative and well groomed, dressed in hospital scrubs at time of discharge interview. She is tearful at times throughout the interview with limited eye contact. SPEECH: Regular rate, rhythm, volume, tone. MOOD: Labile. AFFECT: Mood congruent. THOUGHT PROCESSES: Circumstantial. THOUGHT CONTENT: Free of auditory or visual hallucinations, ideas of reference, thought broadcasting, obsessions, delusions. Denying suicidal or homicidal ideation. SENSORIUM: Clear. COGNITION: Alert and oriented to person, place, time, and situation. MEMORY: Immediate, recent, and remote intact. INTELLIGENCE: Average based on interview. INSIGHT AND JUDGMENT: Considered fair as patient is aware of the need for residential rehab and has completed admission paperwork pending acceptance. CONSULTATIONS None. TREATMENT Patient participated in individual and group therapy. She was started on quetiapine 60 mg one p.o. at bedtime with reported benefit, reporting good sleep, not overly sedated. Patient was maintained on suicide precautions. She did not parasuicidal behaviors and denied active thoughts of hurting herself at time of discharge against medical advice. It was recommended that patient stay on the unit until treatment team on Friday, October 12, 2018, to meet with her ski patrol officer, her significant other, and further work on finalizing admission requirements for [facility] in [place], [place], for residential rehab, although patient has written an against medical advice discharge letter. Her partner, Landy, participated in treatment team the day before as well as her ski patrol officer. She is to return to [facility] for individual psychotherapy, outpatient substance abuse, as well as medication management pending her acceptance to [facility] in [place], [place], for residential rehab. She does have appointments set at [facility]. Please see Discharge Summary from Social Work for specifics of outpatient appointment times. CONDITION OF PATIENT ON DISCHARGE She is considered a minimal risk to herself or others. Due to the increased potential for relapse, she is encouraged to abstain from alcohol and all illicit substances and is encouraged again to stay until treatment team on Friday for further discussion with her ski patrol officer and her significant other on avenues to support her sobriety awaiting her acceptance into residential rehab. Although patient has written an against medical advice discharge letter and is unwilling to stay further, the risks associated with against medical advice discharge from zero to infinity up to and including were reviewed in length with patient. She assumes these against medical advice discharge risks. The crisis line is given and encouraged use for worsening symptoms. DISPOSITION This patient is discharged to home against medical advice. DISCHARGE MEDICATIONS 1. Pepcid 20 mg one p.o. every morning. 2. Seroquel 50 mg one p.o. at bedtime with a seven-day prescription provided with recommendation to meet with a medication provider within the week to evaluate symptoms and continue her outpatient medications. 3. Multivitamin one p.o. daily. 4. Nicotrol inhaler and cartridge for nicotine replacement. DISCHARGE INSTRUCTIONS She is to take medications only as prescribed. She is to follow up with [facility] for medication management and individual therapy. She is to follow up with [facility] in [place], [place], for residential rehab, of which she has agreed to attend pending acceptance. She is encouraged to follow recommendations from her ski patrol officer, and she reports she will be maintained on daily UAs per recommendation of her ski patrol officer to support her sobriety. Patient is to take medications only as prescribed and is to return to the Emergency Room for suicidal or homicidal ideation. PATITO
== END 2018-10-10 13:30 | disposition left against medical advice (07) | DRG 894 ==
LOC: BHS 23:23
PROVIDERS: ADMIT Psychiatry & Neurology Psychiatry; ATTEND Psychiatry & Neurology Psychiatry
DX: F15.24 Other stimulant dependence with stimulant-induced mood disorder (principal); R45.851 Suicidal ideations; F43.12 Post-traumatic stress disorder, chronic; F10.920 Alcohol use, unspecified with intoxication, uncomplicated; F60.3 Borderline personality disorder; Z73.3 Stress, not elsewhere classified; Z59.8 Other problems related to housing and economic circumstances; Z81.8 Family history of other mental and behavioral disorders; Z88.0 Allergy status to penicillin; Y90.6 Blood alcohol level of 120-199 mg/100 ml; Z53.29 Procedure and treatment not carried out because of patient's decision for other reasons
CPT/HCPCS: 36415; 80305; 80320; 80329; 81001; 81025; 82040; 82247; 82310; 82374; 82435; 82565; 82947; 83735; 84075; 84132; 84155; 84295; 84443; 84450; 84460; 84520; 85025; 86580; 93005; 99284

== ENCOUNTER → 2018-11-17 | Outpatient (CLI) | payer MEDICAID ==
[~2018-11-17] MED LIST changes: +FAMO20TA28 PO; +MULT-1379 PO
--- NOTE | 2018-11-17 14:55 | RADIOLOGY IMAGING REPORT ---
FACILITY: [facility] [place] PATIENT NAME: Carolina Adamson : 1980 MR: [id number] V: [id number] EXAM DATE: ORDERING PHYSICIAN: CHRISTIANE MCMILLAN TECHNOLOGIST: Location: [facility] Patient: Carolina Adamson : 1980 Visit/Account:[id number] Date of Sevice: 11/17/2018 Exam type: KNEE 3 VIEW RIGHT History: Fall with injury to right leg, history of prior open reduction internal fixation Comparison: May 07, 2018. Findings: Three views were submitted. Again noted is medial, lateral and posterior hardware transfixing an old fracture through the proximal left tibia. No gross evidence of acute fracture or dislocation seen. Moderate degenerative changes of the tibial plateau again seen. IMPRESSION: 1. Post surgical changes from open reduction internal fixation of the proximal right tibia with asso ciated degenerative changes. No gross evidence of acute fracture or dislocation identified Report Dictated By: Kirti Mora MD at 11/17/2018 2:45 PM Report E-Signed By: Kirti Mora MD at 11/17/2018 2:48 PM WSN:[id number]
== END ==
LOC: RAD 13:10
PROVIDERS: ATTEND Nurse Practitioner Family
DX: M79.604 Pain in right leg (principal)